=== PATIENT | male | born 1970 | race Caucasian/White ===

== ENCOUNTER 2022-10-28 09:20 | Inpatient (IN) | payer OTHER, SELFPAY ==
[2022-10-28] VITALS (26 sets, daily range): BP systolic 116–176; BP diastolic 70–93; PULSE 85–122; RESP 12–34; TEMP 36.1–38.7; O2SAT 84–96; BMI 33.9; BMI 34.9
--- NOTE | 2022-10-28 09:41 | EX.ED.VIS.UR ---
HPI HPI - URI History of Present Illness Chief Complaint: Shortness of Breath Detail of Chief Complaint: URI symptoms last 2 days. Informant: patient Onset/Context/Timing Onset: Days Context: Gradual Onset Timing: Continuous Current Severity: Mild Maximum Severity: Mild Associated Symptoms Associated Symptoms: Positive for Nasal Congestion, Headache, Myalgias, Shortness of Breath and Productive Cough; Negative for Nausea, Vomiting, Diarrhea, Chest Pain, Nonproductive cough or Hemoptysis Narrative Narrative: 52-year-old male no significant past medical history. Currently on no medications. Says he had URI symptoms for last 2 to 3 days. Coughing up yellow phlegm. No hemoptysis. No chest pain. He has had headache or shortness of breath body aches fevers and chills. He took a home COVID test today which was positive. Prior similar symptoms: Yes Recent Illness/Hospitalization: No ROS ROS ED ROS Narrative Cough. Shortness of breath. Fever and chills. Review of Systems ROS Unobtainable: Denies due to encephalopathy Constitutional Constitutional ED: Reports chills and fever(s) Eyes Eyes: Denies blurry vision Cardiovascular Cardiovascular: Denies chest pain Respiratory/Chest Respiratory/Chest: Reports cough and dyspnea Gastrointestinal Gastrointestinal: Denies abdominal pain, constipation, diarrhea, melena, nausea or vomiting Genitourinary Genitourinary ED: Denies dysuria Musculoskeletal Musculoskeletal: Reports myalgias; Denies arthralgias Integumentary Denies abscess Neurologic Neurologic: Reports headache(s) Psychiatric Psychiatric: Denies anxiety Endocrine Endocrinology: Denies cold intolerance Hematologic/Lymphatic Hematologic/Lymphatic: Denies easy bleeding or easy bruising Allergic/Immunologic Allergic/Immunologic ED: Denies mouth swelling or tongue swelling PFSH PFSH Medical History no medical history no medical history Home Medications NK 10/28/22 [History Last Taken Unknown] Allergy/AdvReac Type Severity Reaction Status Date / Time No Known Allergies Allergy Verified 10/28/22 09:25 Social History Smoking Status: Never smoker EXAM Physical Exam Narrative Exam Narrative: 52-year-old male vital signs stable except is hypoxic at 80% on room air. Temperature 96. He does not look septic or toxic. He does not feel well. Clinically mildly dehydrated. H EENT exam dry mucous membranes otherwise unremarkable. Neck nontender. No JVD noted. Lungs dry cough. No rales OR WHEEZING. HEART TACHYCARDIC RATE ABOUT 120 NO MURMUR. ABDOMEN SOFT NONTENDER. EXTREMITIES MOVES ALL 4. CALVES ARE NONTENDER WITHOUT EDEMA OR CORDS. NEUROLOGICALLY IS AWAKE AND ALERT WITH NO FOCAL MOTOR DEFICITS. Const Vital Signs: 10/28/22 09:22 10/28/22 09:24 10/28/22 09:39 Temperature 99.6 F H 99.6 F H Temperature Source Temporal Temporal Pulse Rate 122 H 122 H Respiratory Rate 24 H 24 H Respiratory Effort Short of Breath Respiratory Depth Shallow Respiratory Pattern Tachypnea Blood Pressure 176/93 H 176/93 H Blood Pressure Mean 120 120 Pulse Ox 88 88 Oxygen Delivery Method Room Air Room Air Oxygen Flow Rate (L/min) 10/28/22 09:45 10/28/22 10:15 10/28/22 10:24 Temperature 100.2 F H Temperature Source Temporal Pulse Rate 112 H Respiratory Rate 26 H Respiratory Effort Respiratory Depth Respiratory Pattern Blood Pressure 141/83 H Blood Pressure Mean 102 Pulse Ox 90 88 88 Oxygen Delivery Method Nasal Cannula Nasal Cannula Nasal Cannula Oxygen Flow Rate (L/min) 4 6 6 10/28/22 11:00 Temperature 101.2 F H Temperature Source Temporal Pulse Rate 112 H Respiratory Rate 34 H Respiratory Effort Respiratory Depth Respiratory Pattern Blood Pressure 156/81 H Blood Pressure Mean 106 Pulse Ox 92 Oxygen Delivery Method High Flow Oxygen Flow Rate (L/min) 10 Positive well nourished, well developed and obese; Negative for cachectic or contractures General Appearance ED: well developed and NAD; Negative for cachectic, contractures, cyanotic, diaphoretic or pallor Nutritional Appearance: obese; Negative for cachectic HEENT Reports moist mucous membranes; Denies dry mucous membranes normocephalic and atraumatic Face and Sinus: Negative for sinus tenderness Mouth ED: No dry mucous membranes Mouth: No dry mucous membranes Teeth and Gingiva: Negative for caries Throat: posterior oropharynx normal; Negative for tonsils abnormal Eyes PERRL and EOMs intact bilaterally General Eye ED: Negative for pale conjunctiva or scleral icterus Neck no lymphadenopathy, supple, no meningeal signs and no JVD General: Negative for anterior neck swelling or lymphadenopathy Resp normal respiratory effort and clear to auscultation bilaterally Effort and Inspection: Negative for retractions Auscultation: Negative for rales, rhonchi or wheezes Cardio S1 normal heart sound, S2 normal heart sound and no murmurs Rate: tachycardic; Negative for regular rate Rhythm: regular rhythm GI non-tender, non-distended and no masses Inspection: Negative for abdominal distention Auscultation: normoactive bowel sounds Palpation: soft; Negative for tender or guarding Back/Spine no CVA tenderness and normal ROM General Back: Negative for CVA tenderness Cervical Spine: Negative for cervical spine tenderness Thoracic Spine / Upper Back: Negative for thoracic spinal tenderness Lumbar Spine / Lower Back: Negative for lumbar spinal tenderness Sacrum: Negative for tenderness Extremity normal to inspection and full ROM General Extremety ED: Negative for cyanosis or tenderness General Extremity: Negative for cyanosis Neuro oriented x3 and CN's II-XII intact bilaterally Sensorium / Orientation: alert, oriented to person, oriented to place and oriented to time; Negative for orientation impaired, lethargic or stuporous Motor Exam: strength 5/5 throughout Psych mental status grossly normal Appearance: Negative for other Attitude: No agitated Mood & Affect: Negative for depressed, anxious or tearful Skin General Skin Exam: Negative for jaundice or pallor Lesions: no lesions Rashes: no rashes Trauma: Negative for abrasion or laceration MDM MDM MDM Narrative Medical decision making narrative: Healthy 52-year-old male with COVID and hypoxic. Screening labs will be obtained with a chest x-ray. Also obtain an EKG due to his tachycardia. He will be treated with IV fluids due to his clinical dehydration. Repeat exam at 11:34 AM patient is stable. He is tachycardic at 115. He is on high flow oxygen because on 2 L he remained hypoxic. I am would obtain a CTA of his chest to help delineate a pneumonia versus COVID pneumonitis versus possible pulmonary emboli. He had been given Toradol IV for his headache and Tylenol. He is currently drinking fluids. I will speak to the hospitalist about admission. Spoke to the hospitalist patient will be admitted to the progressive care unit. Awaiting CTA results. If he has what appears to be a bacterial pneumonia be started on antibiotics if this is COVID pneumonitis he will not. Obviously if he has any clots those will be addressed with anticoagulation. I have reviewed old medical records on this patient and discussed with both he and his 's treatment plan. CAT scan of his chest shows multilobar dense infiltrates consistent with multilobar pneumonia. He will be started on IV Zithromax and Rocephin. I will add blood cultures. His respiratory status has worsened and is currently on BiPAP. I have spoken to the fabric and textile factory worker Dr. Remigio Rios. I will change the patient's admission status due to his worsening condition and increasing oxygen requirement to the ICU. Lab Data Attestation: I reviewed the patient's lab results. Lab results narrative: Rapid COVID-positive consistent with his positive home test. Influenza negative here. CBC shows elevated white count 12.3. H&H of 15.3 and 46. Electrolytes show sodium 135. Gap of 8. Normal BUN of 14 creatinine 1.1. Glucose 219. Chest x-ray bilateral lower lobe infiltrates. Which could be from his COVID or a secondary pneumonia. Labs: Laboratory Results - last 24 hr 10/28/22 10/28/22 09:45 09:45 WBC 12.3 H RBC 4.91 Hgb 15.3 Hct 46.5 MCV 94.7 H MCH 31.2 MCHC 32.9 RDW Std Deviation 45.7 H RDW Coeff of Sakshi 13.1 Plt Count 170 MPV 10.1 Immature Gran % (Auto) 1.100 H Neut % (Auto) 89.8 H Lymph % (Auto) 6.7 L Baxter % (Auto) 2.0 Eos % (Auto) 0.4 Baso % (Auto) 0.0 Absolute Neuts (auto) 11.0 H Absolute Lymphs (auto) 0.82 L Nucleated RBC % 0 Sodium 135 L Potassium 3.4 L Chloride 98 Carbon Dioxide 29.0 Anion Gap 8 BUN 14 Creatinine 1.15 Estim Creat Clear Calc 84.35 Est GFR (MDRD) Af Amer 86 Est GFR (MDRD) Non-Af 71 BUN/Creatinine Ratio 12.2 Glucose 219 H Calcium 8.6 Radiography Diagnostic Testing: Clinical Impression(s) from Imaging Studies Chest X-Ray 10/28/22 10:05 IMPRESSION: Bibasilar pulmonary infiltrates worse at the left lung base. Follow-up is recommended. Electronically Signed: Jamarcus Hodge MD at 10:28 EST , Chest CTA 10/28/22 11:40 IMPRESSION: Dense consolidation at the lung bases worse in the right lower lobe with the scattered areas of focal infiltrates in the right upper lobe as well as in the lingular segment of the left upper lobe and right middle lobe. No evidence of pulmonary embolism. Electronically Signed: Jamarcus Hodge MD at 12:33 EST , Rhythm Strip Rhythm Strip: Sinus Tach Rate: 115 Ectopy: None EKG Initial EKG: Attestation: I personally reviewed and interpreted this EKG as follows: Interpretation: No Acute Injury Pattern and Sinus Tachycardia Comments: Sinus tachycardia rate of 116. No signs of ST elevation. Critical Care Time Critical Care Time: Yes Critical care time (excluding procedures): 30-74 minutes, Including time spent:, Discussing w/Consultants, Arranging Admission or Transfer, Performing Direct Patient Care at Bedside and - (35 min) Discharge Plan Dx/Rx/DC Orders Clinical Impression: COVID-19, Respiratory failure, Hypoxia, Pneumonia Disposition Disposition: Acute Care Hospital [facility]
--- NOTE | 2022-10-28 10:05 | RAD_ITS ---
STUDY: X-RAY CHEST REASON FOR EXAM: Male, 52 years old. Hypoxia and covid . Fever and chills. TECHNIQUE: Single AP portable view of the chest. COMPARISON: None. FINDINGS: EKG electrodes are seen. Bibasilar pulmonary infiltrates worse at the left lung base. Follow-up is recommended. There is no demonstrated pleural abnormality. Normal size heart. Normal mediastinum and ridge. Normal visualized pulmonary arteries. There is atherosclerotic tortuosity of the aortic arch and descending thoracic aorta. There are diffuse degenerative changes of the visualized thoracic spine. Normal visualized ribs, clavicles, and shoulders. There is no demonstrated abnormality of the visualized soft tissue structures of the upper abdomen. RAD/Chest 1 View (Portable) IMPRESSION: Bibasilar pulmonary infiltrates worse at the left lung base. Follow-up is recommended. Electronically Signed: Jamarcus Hodge MD at 10:28 EST ,
--- NOTE | 2022-10-28 10:05 | EKG12_ITS ---
Test Reason : SOB Blood Pressure : / mmHG Vent. Rate : 115 BPM Atrial Rate : 115 BPM P-R Int : 156 ms QRS Dur : 092 ms QT Int : 316 ms P-R-T Axes : 033 032 -22 degrees QTc Int : 437 ms Sinus tachycardia Incomplete right bundle branch block Nonspecific ST and T wave abnormality Abnormal ECG Confirmed by JENY CALIX, BIRDIE ([id number]), photographic editor CAN GARCIA ([id number]) on 11/01/2022 10:28:37 AM Referred By: Confirmed By:FLORES FERMIN MD
[2022-10-28] MEDS: 0.9% Normal Saline 1,000 ML 999 ML IV (10:12)
[2022-10-28 10:16] LABS: Absolute Lymphocyte Count 0.82 X10^3/uL (0.83-4.51); Eosinophil# 0.05 X10^3/uL; Eosinophils% 0.4 % (0-5); Hematocrit 46.5 % (40-54); Hemoglobin 15.3 g/dL (13.0-16.5); Lymphocyte # 0.82 X10^3/ul (0.83-4.51); Lymphocyte % 6.7 % (19-41); Mean Corp Hgb Conc 32.9 g/dL (32-36); Mean Corpuscular Hgb 31.2 pg (27.0-32.0); Mean Corpuscular Volume 94.7 fL (80-94); Mean Platelet Vol. 10.1 fl (6.2-12.0); Monocyte# 0.25 X10^3/uL; NRBC Flagged by Analyzer 0 % (0-5); Neutrophil # 11.03 X10^3/uL (2.7-7.7); Neutrophil % 89.8 % (47-70); POSITIVE MORPHOLOGY YES; Platelet Count 170 K/mm3 (150-450); RBC Distribution Width CV 13.1 % (11.6-14.6); RBC Distribution Width SD 45.7 fl (35.1-43.9); Red Blood Count 4.91 M/mm3 (4.6-6.2); White Blood Count 12.3 K/mm3 (4.4-11.0)
[2022-10-28 10:19] LABS: Differential Indicated SCAN CRITERIA MET
[2022-10-28 10:26] LABS: Anion Gap 8 (5-15); BUN 14 mg/dL (7-18); BUN/Creat Ratio 12.2 RATIO (10-20); Calcium,Total 8.6 mg/dL (8.5-10.1); Chloride 98 mmol/L (98-107); Creatinine, Serum 1.15 mg/dL (0.70-1.30); EST Glomerular Filtration Rate 71 mL/min (>60); Est Glom Filt Rate - Afr Amer 86 mL/min (>60); Estimated Creatinine Clearance 84.35 ml/min; Glucose 219 mg/dL (74-106); Potassium 3.4 mmol/L (3.5-5.1); Sodium Level 135 mmol/L (136-145)
--- NOTE | 2022-10-28 11:40 | CT_ITS ---
STUDY: CTA CHEST REASON FOR EXAM: Male, 52 years old. reps failure w/ covid and hypoxia RADIATION DOSAGE (If Supplied By Facility): CTDIvol = ( 22.17 ) mGy, DLP = ( 576.16 ) mGycm TECHNIQUE: The examination was performed with the intravenous administration of IV 100mL Isovue-370. Post-processing of the angiographic images was performed, with multiplanar reformation and 3D reconstruction. Individualized dose optimization techniques were used for this CT. COMPARISON: None. FINDINGS: Normal enhancement of the main pulmonary artery and right and left pulmonary arteries. Normal enhancement of the bilateral peripheral pulmonary arteries. There is no demonstrated pulmonary embolism. Normal thoracic aorta and visualized great vessels. There is no demonstrated aortic dissection. Normal heart and pericardium. There are visualized mediastinal lymph nodes, which are within normal size limits, and with normal morphology. Normal hilar regions. Normal visualized trachea and bronchi. The lungs are well expanded. Focal infiltrate in the anterior aspect of the right upper lobe. Patchy areas of increased markings in the right middle lobe. Dense consolidation in both lower lobes worse on the right side. Patchy infiltrate in the posterior aspect of the lingular segment of the left upper lobe. Normal pleura. Normal chest wall structures. There are degenerative changes of thoracic spine. Fatty infiltration of the liver. Small hiatal hernia. CT/CTA Chest W/WO Contrast IMPRESSION: Dense consolidation at the lung bases worse in the right lower lobe with the scattered areas of focal infiltrates in the right upper lobe as well as in the lingular segment of the left upper lobe and right middle lobe. No evidence of pulmonary embolism. Electronically Signed: Jamarcus Hodge MD at 12:33 EST ,
--- NOTE | 2022-10-28 11:53 | PCM.HP.STD ---
HPI - General General Date of Admission: 10/28/22 Date of Service: 10/29/22 Chief Complaint: SOB - 2 days HPI Narrative TAVON ROSARIO, is a 52 M who presents the above. Patient stated he has past medical history of hypertension, not on medications, history of vaccination against COVID-19 who comes in with progressive shortness of breath ongoing for couple days. Patient lives with his parents. He denies any sick contact but admits to fever and chills and cough. He has a cough that is not productive. He denies any chest pain or orthopnea or PND or dizziness. His vitals in the ED showed blood pressure 136/93, heart rate 83, respiratory 24, temperature 99.6 F, oxygen sat was 88% on 4 L of oxygen. This improved to 93% on BiPAP. His WBC count was 12.3, hemoglobin 15.3, platelet count 170. His sodium was 135, potassium 3.5 BUN 14, creatinine 1.5. Blood sugar was 219, lactic acid was 2.2. Initial chest x-ray showed bibasilar pulmonary infiltrates, worse on the left lung base. CT of the chest showed dense consolidation in the lung bases worse in the right lower lobe with scattered infiltrates in the right upper lobe. [facility] Medical History Hypertension Medical History no medical history Home Medications NK 10/28/22 [History Last Taken Unknown] Allergy/AdvReac Type Severity Reaction Status Date / Time No Known Allergies Allergy Verified 10/28/22 09:25 no significant family history no surgical history Social History (Updated 10/29/22 @ 00:[address] Jenny Johnston MD) household members: family Smoking Status: Never smoker alcohol intake: never substance use type: does not use ROS ROS Narrative Constitutional: Reports: Malaise, Weakness, Fatigue. Denies: Anorexia, Chills, Fever, Night Sweats, Weight Change Eyes: Denies: Blurred vision, Cataracts, Conjunctivae Inflammation, Pain, Redness, Vision Change HEENT: Denies: Difficulty Hearing, Difficulty Swallowing, Head Aches, Hearing Changes, Sinus Congestion, Sinus Drainage Cardiovascular: Denies: Chest Pain, Orthopnea, Palpitations Respiratory: See HPI Gastrointestinal: Denies: Abdominal Pain, Nausea, Vomiting Genitourinary: Denies: Dysuria Musculoskeletal: Denies: Joint Pain, Joint stiffness, Joint swelling, Joint Tenderness Skin: Denies: Rash, Wounds Neurological: Denies: Numbness, Tingling, Focal weakness Vital Signs Vital Signs Vital Signs: 10/28/22 09:22 10/28/22 09:24 10/28/22 09:39 Temperature 99.6 F H 99.6 F H Temperature Source Temporal Temporal Pulse Rate 122 H 122 H Respiratory Rate 24 H 24 H Respiratory Effort Short of Breath Respiratory Depth Shallow Respiratory Pattern Tachypnea Blood Pressure 176/93 H 176/93 H Blood Pressure Mean 120 120 Pulse Ox 88 88 Oxygen Delivery Method Room Air Room Air Oxygen Flow Rate (L/min) 10/28/22 09:45 10/28/22 10:15 10/28/22 10:24 Temperature 100.2 F H Temperature Source Temporal Pulse Rate 112 H Respiratory Rate 26 H Respiratory Effort Respiratory Depth Respiratory Pattern Blood Pressure 141/83 H Blood Pressure Mean 102 Pulse Ox 90 88 88 Oxygen Delivery Method Nasal Cannula Nasal Cannula Nasal Cannula Oxygen Flow Rate (L/min) 4 6 6 10/28/22 11:00 Temperature 101.2 F H Temperature Source Temporal Pulse Rate 112 H Respiratory Rate 34 H Respiratory Effort Respiratory Depth Respiratory Pattern Blood Pressure 156/81 H Blood Pressure Mean 106 Pulse Ox 92 Oxygen Delivery Method High Flow Oxygen Flow Rate (L/min) 10 Weight Weight: 113.398 kg Body Mass Index (BMI) 33.9 Physical Exam Narrative Physical exam: General: Alert, Oriented x3, Cooperative, obese, on 8 L of oxygen HEENT: Atraumatic Oral: Moist Mucosa Neck: Supple Lungs: Diminished to auscultation Cardiovascular: HS I+II, regular, no murmurs Abdomen: Bowel Sounds Present, Soft, Non Tender Extremities: No edema Skin: No rashes, No breakdown Neurological: Grossly intact Psych/Mental Status: Appropriate Results Lab / Micro Data Result Diagrams: 10/28/22 09:45 10/28/22 09:45 Labs: Laboratory Results - last 24 hr 10/28/22 09:45: WBC 12.3 H, RBC 4.91, Hgb 15.3, Hct 46.5, MCV 94.7 H, MCH 31.2, MCHC 32.9, RDW Std Deviation 45.7 H, RDW Coeff of Sakshi 13.1, Plt Count 170, MPV 10.1, Immature Gran % (Auto) 1.100 H, Neut % (Auto) 89.8 H, Lymph % (Auto) 6.7 L, [place] % (Auto) 2.0, Eos % (Auto) 0.4, Baso % (Auto) 0.0, Absolute Neuts (auto) 11.0 H, Absolute Lymphs (auto) 0.82 L, Nucleated RBC % 0 10/28/22 09:45: Sodium 135 L, Potassium 3.4 L, Chloride 98, Carbon Dioxide 29.0, Anion Gap 8, BUN 14, Creatinine 1.15, Estim Creat Clear Calc 84.35, Est GFR (MDRD) Af Amer 86, Est GFR (MDRD) Non-Af 71, BUN/Creatinine Ratio 12.2, Glucose 219 H, Calcium 8.6 Micro: Microbiology 10/28/22 09:55 Nasal Secretion SARS-CoV-2 & FLU Antigen (Rapid) - Final SARS-CoV-2 (COVID 19) Rhythm Strip Rhythm Strip: Sinus Tach Rate: 115 Ectopy: None Radiology Impression Chest X-Ray 10/28/22 10:05 IMPRESSION: Bibasilar pulmonary infiltrates worse at the left lung base. Follow-up is recommended. Electronically Signed: Jamarcus Hodge MD at 10:28 EST , Assessment & Plan Assessment/Plan (1) Respiratory failure: (2) COVID-19: PLAN: Plan 1. Acute hypoxic respiratory failure secondary to acute COVID-19 infection/community-acquired pneumonia. Patient has history of vaccination against COVID-19. Admitting chest x-ray and CTA of the chest shows community-acquired pneumonia; negative for acute PE Continue treatment for COVID-19 with dexamethasone and remdesivir Continue empiric treatment for community-acquired pneumonia with antibiotics Encourage use of incentive spirometer 2. Hypertension, blood pressures are controlled, not on medication, continue to monitor for now but 3. Hypokalemia, replaced, recheck in a.m. 4. DVT PPx- Lovenox SC Charges/Coding Visit Charges Inpatient E&M: 30723 Init Hosp L2
[2022-10-28] MEDS: Ketorolac 30 MG/ML Syringe IV (12:16)
[2022-10-28] MEDS: Acetaminophen 500 MG Tablet 1000 MG PO (12:16)
--- NOTE | 2022-10-28 12:52 | CPS ---
at 1237 placed pt on bipap. pt was on HFNC at 12L and sat was only in the mid to high 80. placed pt on bipap of 16/10 100%. sat came up to 95%. RN and doctor erasmo aware.
[2022-10-28] MEDS: Ceftriaxone 1 GM/50 ML BAG IV (13:13)
[2022-10-28 13:52] LABS: Lactic Acid 2.2 mmol/L (0.4-1.9)
[2022-10-28 16:34] LABS: AST(SGOT) 16 U/L (15-37); Alanine Aminotransfer ALT/SGPT 45 U/L (16-61); Albumin, Serum 3.4 g/dL (3.2-5.0); Alkaline Phosphatase 45 U/L (45-117); Bilirubin, Direct 0.23 mg/dL (0.00-0.30); Globulin 4.2 g/dL (2.2-4.2); Protein, Total 7.6 g/dL (6.4-8.2)
[2022-10-28] MEDS: Potassium Chloride Oral Tablet 20 MEQ 60 MEQ PO (17:00)
[2022-10-28] MEDS: dexAMETHasone 10 MG/ML Vial 6 MG IV (17:00)
[2022-10-28 17:04] LABS: Reflex Lactate? Y
[2022-10-28] MEDS: Ipratropium/Albuterol Sulfate 3 ML AMPUL.NEB INHALATION (19:38)
[2022-10-28 19:42] LABS: Lactic Acid 2.8 mmol/L (0.4-1.9)
[2022-10-29] VITALS (30 sets, daily range): BP systolic 108–152; BP diastolic 62–90; PULSE 74–105; RESP 12–34; TEMP 36.2–37.3; O2SAT 90–97
[2022-10-29 03:31] LABS: Absolute Lymphocyte Count 0.42 X10^3/uL (0.83-4.51); Absolute Neutrophil Count 10.1 X10^3/uL (2.0-7.7); Eosinophil# 0.05 X10^3/uL; Eosinophils% 0.5 % (0-5); Hematocrit 40.6 % (40-54); Hemoglobin 13.6 g/dL (13.0-16.5); Lymphocyte # 0.42 X10^3/ul (0.83-4.51); Lymphocyte % 3.9 % (19-41); Mean Corp Hgb Conc 33.5 g/dL (32-36); Mean Corpuscular Hgb 31.4 pg (27.0-32.0); Mean Corpuscular Volume 93.8 fL (80-94); Mean Platelet Vol. 9.9 fl (6.2-12.0); Monocyte# 0.18 X10^3/uL; Monocyte% 1.7 % (0-10); NRBC Flagged by Analyzer 0 % (0-5); Neutrophil # 10.14 X10^3/uL (2.7-7.7); Neutrophil % 93.6 % (47-70); POSITIVE DIFFERENTIAL YES; POSITIVE MORPHOLOGY YES; Platelet Count 176 K/mm3 (150-450); RBC Distribution Width CV 13.2 % (11.6-14.6); RBC Distribution Width SD 45.3 fl (35.1-43.9); Red Blood Count 4.33 M/mm3 (4.6-6.2); White Blood Count 10.8 K/mm3 (4.4-11.0)
[2022-10-29 03:32] LABS: Differential Indicated SCAN CRITERIA MET
[2022-10-29 03:47] LABS: ALB/GLOB Ratio 0.6 RATIO (0.9-2.4); AST(SGOT) 13 U/L (15-37); Alanine Aminotransfer ALT/SGPT 36 U/L (16-61); Albumin, Serum 2.7 g/dL (3.2-5.0); Alkaline Phosphatase 40 U/L (45-117); Anion Gap 10 (5-15); BUN 20 mg/dL (7-18); BUN/Creat Ratio 20.4 RATIO (10-20); Calcium,Total 8.5 mg/dL (8.5-10.1); Chloride 100 mmol/L (98-107); Creatinine, Serum 0.98 mg/dL (0.70-1.30); EST Glomerular Filtration Rate 86 mL/min (>60); Est Glom Filt Rate - Afr Amer 104 mL/min (>60); Estimated Creatinine Clearance 98.98 ml/min; Globulin 4.3 g/dL (2.2-4.2); Glucose 196 mg/dL (74-106); Potassium 3.8 mmol/L (3.5-5.1); Sodium Level 136 mmol/L (136-145)
[2022-10-29 05:23] LABS: Differential Comment SCANNED
[2022-10-29] MEDS: Ipratropium/Albuterol Sulfate 3 ML AMPUL.NEB INHALATION ×3 (06:50→20:06)
[2022-10-29 08:12] LABS: Hemoglobin A1c 7.2 % (3.8-5.6)
[2022-10-29] MEDS: 0.9% Saline Lock 10 ML Syringe IV (08:39)
[2022-10-29] MEDS: Enoxaparin 40 MG/0.4 ML Syringe SC (08:39)
[2022-10-29] MEDS: Acetaminophen 325 MG Tablet 650 MG PO (08:49)
--- NOTE | 2022-10-29 10:49 | EX.PCM.CONCC ---
Assessment & Plan Assessment/Plan (1) Respiratory failure: (2) COVID-19: PLAN: Plan RECOMMENDATIONS: 1. Continue to wean FiO2 as tolerated. BiPAP with sleep 2. Continue Remdesivir (11/01/2022) and Decadron (11/07/2022) 3. Add blood sugar checks 4. Agree with empiric antibiotics pending cultures 5. Obtain echocardiogram 6. Establish with PCP on discharge IMPRESSIONS: 1. Acute hypoxic respiratory failure secondary to COVID-19 with possible community-acquired pneumonia Patient was significant hypoxic respiratory failure on presentation. Patient is reportedly within 3 days of symptoms, so Remdesivir would be indicated, along with dexamethasone. Patient does have dense infiltrates bilaterally. Aspiration versus community-acquired pneumonia. Recommend sputum culture with empiric antibiotics pending cultures. Patient is currently on Airvo, but should use BiPAP with sleep for now. Outpatient work-up for sleep apnea would be indicated. 2. New diagnosis diabetes mellitus Patient with hemoglobin A1c of 7.1 and elevated glucose on BMP. Patient is currently on steroids secondary to problem #1. Will initiate sliding scale insulin. Patient may require initiation of metformin prior to discharge. However, in the setting of steroids, basal insulin may be ordered. 3. Hypertension/obesity/lack of primary care Complicates care, management, recovery and prognosis. We will monitor blood pressures closely. May initiate beta-nicola versus PRATIK inhibitor pending results. Patient needs to be established with PCP on discharge HPI Consult Data Date of Consult: 10/29/22 HPI Narrative Reason for Consultation: Hypoxic respiratory failure HPI Narrative: TAVON ROSARIO is a 52 M, with no reported past medical history, who presents to [facility] on 10/28/2022 secondary to 3 days of progressive shortness of breath, productive cough, body aches, fevers and chills. Patient reportedly had taken a home COVID test on the day of presentation was found to be positive. Patient did not reported any hemoptysis or chest pain. Patient reportedly was initially vaccinated, but not boosted and has not had the bivalent vaccine. Patient states he has no past medical history, but has not been seen by a physician in over 3 years. In the ER, patient was noted to have a temperature of 101.2 ?F, tachycardic at 122 beats per minute and tachypneic at 26 breaths/min. Patient was normotensive, but noted to be 88% on room air. Patient was placed on nasal cannula initially, but ultimately required BiPAP. Laboratory work-up showed a white blood cell count of 12.3, hemoglobin of 15.3 and platelets of 170. Chemistry showed an elevated bicarbonate of 29, creatinine of 1.15 and glucose of 219. Chest x-ray showed bibasilar infiltrates and a subsequent CTA of the chest showed dense consolidation of bilateral lower lobes with focal groundglass opacities, but no PE. Given concerns for possible deterioration requiring mechanical support, patient was admitted to the intensive care unit for further evaluation. Since being in the intensive care unit, patient's oxygen requirements have significantly improved. This morning, patient was able to be placed on Airvo and is maintaining saturations on 80% FiO2. Patient subjectively feels improved compared to previous. Patient continues to have a cough is productive of thick yellow sputum. Patient reports he has never had any respiratory illnesses that he is aware of. Patient has never been a smoker, seen a marketing intern or had PFTs. 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 Patient has not needed to be hospitalized previously. Patient is not reporting any current nausea or vomiting. No aspiration event has been reported. Review of systems otherwise negative from a constitutional, HEENT, respiratory, cardiovascular, GI, genitourinary, musculoskeletal, skin, neurologic, psychiatric and hematologic system unless stated above. [facility] Medical History Hypertension Medical History no medical history Home Medications NK 10/28/22 [History Last Taken Unknown] Allergy/AdvReac Type Severity Reaction Status Date / Time No Known Allergies Allergy Verified 10/28/22 09:25 Family History no significant family his Surgical History no surgical history Social History household members: family Smoking Status: Never smoker alcohol intake: never substance use type: does not use ROS ROS Narrative See HPI Physical Exam Const alert, oriented x3 and no apparent distress Constitutional Narrative: On Airvo. Obese. Appears older than stated age. General Appearance: cooperative and well developed HEENT normocephalic and head/scalp atraumatic Mouth: oral and palatal mucosa normal Eyes PERRL, EOMs intact bilaterally and no scleral icterus Neck full ROM and no lymphadenopathy Chest inspection of chest normal Resp Auscultation: diminished lung sounds; Negative for rales, rhonchi or wheezes Percussion: Negative for dullness Cardio regular rhythm, S1 normal heart sound, S2 normal heart sound, no murmurs, no rub and no gallops Rate: tachycardic GI normal to inspection, nondistended, normoactive bowel sounds no CVA tenderness Extremity no clubbing, cyanosis or edema Skin no rashes or lesions noted Neuro oriented x3, CN's II-XII intact bilaterally, moves all extremities and no focal motor deficits Psych cooperative Mood & Affect: flat affect Lab / Micro Data Attestation: I reviewed the patient's lab results. Result Diagrams: 10/29/22 03:25 10/29/22 03:25 Labs: Laboratory Results - last 24 hr 10/28/22 09:45: Total Bilirubin 0.70, Direct Bilirubin 0.23, AST 16, ALT 45, Alkaline Phosphatase 45, Total Protein 7.6, Albumin 3.4, Globulin 4.2 10/28/22 12:54: Lactic Acid 2.2 H* 10/28/22 19:05: Lactic Acid 2.8 H* 10/29/22 03:25: WBC 10.8, RBC 4.33 L, Hgb 13.6, Hct 40.6, MCV 93.8, MCH 31.4, MCHC 33.5, RDW Std Deviation 45.3 H, RDW Coeff of Sakshi 13.2, Plt Count 176, MPV 9.9, Immature Gran % (Auto) 0.300, Neut % (Auto) 93.6 H, Lymph % (Auto) 3.9 L, [place] % (Auto) 1.7, Eos % (Auto) 0.5, Baso % (Auto) 0.0, Absolute Neuts (auto) 10.1 H, Absolute Lymphs (auto) 0.42 L, Nucleated RBC % 0, Differential Comment SCANNED 10/29/22 03:25: Sodium 136, Potassium 3.8, Chloride 100, Carbon Dioxide 26.0, Anion Gap 10, BUN 20 H, Creatinine 0.98, Estim Creat Clear Calc 98.98, Est GFR (MDRD) Af Amer 104, Est GFR (MDRD) Non-Af 86, BUN/Creatinine Ratio 20.4 H, Glucose 196 H, Calcium 8.5, Total Bilirubin 0.60, AST 13 L, ALT 36, Alkaline Phosphatase 40 L, Total Protein 7.0, Albumin 2.7 L, Globulin 4.3 H, Albumin/Globulin Ratio 0.6 L 10/29/22 03:25: Hemoglobin A1c 7.2 H Micro: Microbiology 10/28/22 09:55 Nasal Secretion SARS-CoV-2 & FLU Antigen (Rapid) - Final SARS-CoV-2 (COVID 19) Rhythm Strip Rhythm Strip: Sinus Tach Rate: 115 Ectopy: None Radiology Impression Chest CTA 10/28/22 11:40 IMPRESSION: Dense consolidation at the lung bases worse in the right lower lobe with the scattered areas of focal infiltrates in the right upper lobe as well as in the lingular segment of the left upper lobe and right middle lobe. No evidence of pulmonary embolism. Electronically Signed: Jamarcus Hodge MD at 12:33 EST , Charges/Coding Visit Charges Inpatient E&M: 33666 Init Hosp L3
--- NOTE | 2022-10-29 10:57 | ECHOD_ITS ---
Reason For Study: DYSPNEA Procedure This was a 2D Doppler, Color Flow transthoracic echocardiogram. The study was technically difficult. Definity deferred due to no on axis apical window. Exam performed portable in ICU/CCU. The exam was abbreviated due to the COVID 19 protocol. Left Ventricle Normal LV size. The estimated ejection fraction is 65 %. Unable to assess diastolic dysfunction. No regional wall motion abnormalities noted. Right Ventricle Normal RV size. Normal systolic function. Atria Normal left atrium. Normal right atrium. No doppler evidence for ASD. Mitral Valve There is no mitral valve stenosis. No mitral valve insufficiency. Tricuspid Valve There is no tricuspid stenosis. No tricuspid valve insufficiency. Unable to estimate RV systolic pressure due to inadequate jet, pulmonary artery pressure probably normal. Aortic Valve Trisinus/trileaflet aortic valve. There is no aortic stenosis. No aortic valve insufficiency. Pulmonic Valve There is no pulmonic valvular stenosis. No pulmonic valve insufficiency. Great Vessels Normal aortic root. Pericardium/Pleural No pericardial effusion. MMode/2D Measurements & Calculations LVIDd: 5.0 cm IVSd: 1.3 cm Ao root diam: 3.7 cm LVIDs: 3.4 cm LVPWd: 0.99 cm FS: 32.7 % LA dimension(2D): 4.0 cm Time Measurements MV dec time: 0.22 sec Doppler Measurements & Calculations MV E max gilmar: 43.0 cm/sec Ao V2 max: 109.1 cm/sec MV A max gilmar: 39.5 cm/sec MV dec slope: 197.0 cm/sec2 Ao max P.8 mmHg MV E/A: 1.1 Ao V2 mean: 67.9 cm/sec Ao mean P.1 mmHg Ao V2 VTI: 17.7 cm AV (velocity ratio): 0.74 LV V1 max: 72.7 cm/sec LV V1 max P.1 mmHg LV V1 mean P.2 mmHg LV V1 mean: 50.6 cm/sec LV V1 VTI: 13.1 cm ECHO/Echo Complete Interpretation Summary The estimated ejection fraction is 65 %. Unable to assess diastolic dysfunction. Ordering Physician: Remigio Rios Referring Physician: ANASTACIA PCP Performed By: Daniela Garcia RCS
[2022-10-29] MEDS: dexAMETHasone 10 MG/ML Vial 6 MG IV (11:30)
[2022-10-29] MEDS: Insulin Lispro 100 UNIT/ML INSULN.PEN SC ×3 (11:34→20:35)
--- NOTE | 2022-10-29 11:36 | PN.HOSP_ITS ---
Subjective Subjective Follow-up on acute hypoxic respiratory failure/Acute COVID-19 infection: Patient seen and examined. His respiratory status has worsened, he is currently on Airvo. He denies any fever or chills. Objective Data Objective Data Vital Signs: Vital Signs Temp Pulse Resp BP Pulse Ox O2 Del Method O2 Flow Rate 97.8 F 90 26 H 108/62 97 Airvo 50 10/29/22 11:00 10/29/22 11:00 10/29/22 11:00 10/29/22 11:00 10/29/22 11:00 10/29/22 11:00 10/29/22 11:00 FiO2 90 10/29/22 11:00 Oxygen Flow Rate (L/min) 50 Oxygen Delivery Method Airvo Weight: 116.8 kg Body Mass Index (BMI) 34.9 Intake & Output: Intake and Output for Last 24 Hours 10/27/22 10/28/22 10/29/22 23:59 23:59 23:59 Intake Total 1305 / 1305 300 / 300 Output Total 300 / 300 200 / 200 Balance 1005 / 1005 100 / 100 Lab / Micro Data Result Diagrams: 10/29/22 03:25 10/29/22 03:25 Labs: Laboratory Results - last 24 hr 10/28/22 09:45: Total Bilirubin 0.70, Direct Bilirubin 0.23, AST 16, ALT 45, Alkaline Phosphatase 45, Total Protein 7.6, Albumin 3.4, Globulin 4.2 10/28/22 12:54: Lactic Acid 2.2 H* 10/28/22 19:05: Lactic Acid 2.8 H* 10/29/22 03:25: WBC 10.8, RBC 4.33 L, Hgb 13.6, Hct 40.6, MCV 93.8, MCH 31.4, MCHC 33.5, RDW Std Deviation 45.3 H, RDW Coeff of Sakshi 13.2, Plt Count 176, MPV 9.9, Immature Gran % (Auto) 0.300, Neut % (Auto) 93.6 H, Lymph % (Auto) 3.9 L, [place] % (Auto) 1.7, Eos % (Auto) 0.5, Baso % (Auto) 0.0, Absolute Neuts (auto) 10.1 H, Absolute Lymphs (auto) 0.42 L, Nucleated RBC % 0, Differential Comment SCANNED 10/29/22 03:25: Sodium 136, Potassium 3.8, Chloride 100, Carbon Dioxide 26.0, Anion Gap 10, BUN 20 H, Creatinine 0.98, Estim Creat Clear Calc 98.98, Est GFR (MDRD) Af Amer 104, Est GFR (MDRD) Non-Af 86, BUN/Creatinine Ratio 20.4 H, Glucose 196 H, Calcium 8.5, Total Bilirubin 0.60, AST 13 L, ALT 36, Alkaline Phosphatase 40 L, Total Protein 7.0, Albumin 2.7 L, Globulin 4.3 H, Albumin/Globulin Ratio 0.6 L 10/29/22 03:25: Hemoglobin A1c 7.2 H Micro: Microbiology 10/28/22 09:55 Nasal Secretion SARS-CoV-2 & FLU Antigen (Rapid) - Final SARS-CoV-2 (COVID 19) Radiography Diagnostic Testing: Radiology Impression Chest CTA 10/28/22 11:40 IMPRESSION: Dense consolidation at the lung bases worse in the right lower lobe with the scattered areas of focal infiltrates in the right upper lobe as well as in the lingular segment of the left upper lobe and right middle lobe. No evidence of pulmonary embolism. Electronically Signed: Jamarcus Hodge MD at 12:33 EST , Rhythm Strip Rhythm Strip: Sinus Tach Rate: 115 Ectopy: None Physical Exam Narrative Physical exam: General: Alert, Oriented x3, Cooperative, obese, on Airvo HEENT: Atraumatic Oral: Moist Mucosa Neck: Supple Lungs: Diminished to auscultation Cardiovascular: HS I+II, regular, no murmurs Abdomen: Bowel Sounds Present, Soft, Non Tender Extremities: No edema Skin: No rashes, No breakdown Neurological: Grossly intact Psych/Mental Status: Appropriate Assessment & Plan Assessment/Plan (1) Respiratory failure: (2) COVID-19: PLAN: Plan 1. Acute hypoxic respiratory failure secondary to acute COVID-19 infection/community-acquired pneumonia, worsening Currently on Airvo. Patient has history of vaccination against COVID-19. Admitting chest x-ray and CTA of the chest shows community-acquired pneumonia; negative for acute PE Continue treatment for COVID-19 with dexamethasone and remdesivir Continue empiric treatment for community-acquired pneumonia with antibiotics Encourage use of incentive spirometer 2. Hypertension, blood pressures are controlled, not on medication, continue to monitor for now but 3. Hypokalemia, replaced, recheck in a.m. 4. DVT PPx- Lovenox SC Charges/Coding Visit Charges Inpatient E&M: 76067 Subs Hosp L2
[2022-10-29 12:00] LABS: Bedside Glucose 222 mg/dL (74-106)
--- NOTE | 2022-10-29 18:46 | CASEMGMT ---
CHONG ELIAS DC Planning Assessment: Face to Face with patient attempted for initial transition planning/care coordination assessment but pt unavailable and requiring O2 via Airvo. Call placed to pt's mother Chu. CHONG ELIAS introduced self and role at [facility], pt's mother voiced understanding and agreed to participate in assessment. Care providers, pharmacy, and demographics verified. PCP: None, will provide a PCP list. Specialists: None Preferred [facility]acy: [facility] Insurance: [employer] Prescription Benefit: Yes Living Will/HPOA: None LNOK: Mother Chu Living Arrangements: Pt lives in the basement of his parent's home. Stairs are accessed from the garage to be able to access the remainder of the home. Pt has been independent with all ADLs and was working multimedia journalist. Transportation: Pt drives self, parents are retired and able to drive pt if needed DME/HHC/SNF: None Plan: Return to parent's home. Will monitor for potential home O2 or other needs as identified. Tomasa Segura RN CM
[2022-10-29 21:01] LABS: Bedside Glucose 252 mg/dL (74-106)
[2022-10-29 21:01] LABS: Bedside Glucose 206 mg/dL (74-106)
[2022-10-30] VITALS (32 sets, daily range): BP systolic 115–168; BP diastolic 74–99; PULSE 58–85; RESP 12–33; TEMP 36.4–37.3; O2SAT 93–97
[2022-10-30 04:25] LABS: Absolute Lymphocyte Count 0.81 X10^3/uL (0.83-4.51); Absolute Neutrophil Count 8.5 X10^3/uL (2.0-7.7); Basophil# 0.04 X10^3/uL; Basophil% 0.4 % (0-1); Eosinophil# 0.05 X10^3/uL; Eosinophils% 0.5 % (0-5); Hematocrit 38.7 % (40-54); Lymphocyte # 0.81 X10^3/ul (0.83-4.51); Mean Corp Hgb Conc 33.6 g/dL (32-36); Mean Corpuscular Hgb 31.5 pg (27.0-32.0); Mean Corpuscular Volume 93.7 fL (80-94); Mean Platelet Vol. 9.9 fl (6.2-12.0); Monocyte# 0.56 X10^3/uL; Monocyte% 5.5 % (0-10); NRBC Flagged by Analyzer 0 % (0-5); Neutrophil # 8.53 X10^3/uL (2.7-7.7); Neutrophil % 84.3 % (47-70); Platelet Count 217 K/mm3 (150-450); RBC Distribution Width CV 13.2 % (11.6-14.6); Red Blood Count 4.13 M/mm3 (4.6-6.2); White Blood Count 10.1 K/mm3 (4.4-11.0)
[2022-10-30 04:53] LABS: ALB/GLOB Ratio 0.6 RATIO (0.9-2.4); AST(SGOT) 27 U/L (15-37); Alanine Aminotransfer ALT/SGPT 41 U/L (16-61); Albumin, Serum 2.5 g/dL (3.2-5.0); Alkaline Phosphatase 38 U/L (45-117); Anion Gap 7 (5-15); BUN 27 mg/dL (7-18); BUN/Creat Ratio 34.7 RATIO (10-20); Calcium,Total 8.6 mg/dL (8.5-10.1); Chloride 100 mmol/L (98-107); Creatinine, Serum 0.78 mg/dL (0.70-1.30); EST Glomerular Filtration Rate 112 mL/min (>60); Est Glom Filt Rate - Afr Amer 135 mL/min (>60); Estimated Creatinine Clearance 124.36 ml/min; Globulin 4.5 g/dL (2.2-4.2); Glucose 211 mg/dL (74-106); Potassium 4.1 mmol/L (3.5-5.1); Sodium Level 134 mmol/L (136-145)
[2022-10-30] MEDS: Insulin Lispro 100 UNIT/ML INSULN.PEN SC ×4 (06:30→21:12)
[2022-10-30 06:55] LABS: Bedside Glucose 208 mg/dL (74-106)
[2022-10-30] MEDS: Ipratropium/Albuterol Sulfate 3 ML AMPUL.NEB INHALATION ×4 (07:43→20:10)
--- NOTE | 2022-10-30 08:46 | PN.CC_ITS ---
Assessment & Plan Assessment/Plan (1) Respiratory failure: (2) COVID-19: PLAN: Plan RECOMMENDATIONS: 1. Continue to wean FiO2 as tolerated. BiPAP with sleep 2. Continue Remdesivir (11/01/2022) and Decadron (11/07/2022) 3. Continue blood sugar checks 4. Agree with empiric antibiotics pending cultures 5. Gentle diuresis 6. Okay to leave the intensive care unit IMPRESSIONS: 1. Acute hypoxic respiratory failure secondary to COVID-19 with possible community-acquired pneumonia Patient was significant hypoxic respiratory failure on presentation. Patient is reportedly within 3 days of symptoms, so Remdesivir would be indicated, along with dexamethasone. Patient does have dense infiltrates bilaterally. Aspiration versus community-acquired pneumonia. Recommend sputum culture with empiric antibiotics pending cultures. Patient is currently on Airvo, but should use BiPAP with sleep for now. Outpatient work-up for sleep apnea would be indicated. We will attempt a gentle diuresis. Echocardiogram is not consistent with systolic CHF 2. New diagnosis diabetes mellitus Patient with hemoglobin A1c of 7.1 and elevated glucose on BMP. Patient is currently on steroids secondary to problem #1. Will initiate sliding scale insulin. Patient may require initiation of metformin prior to discharge. However, in the setting of steroids, basal insulin may be ordered. 3. Hypertension/obesity/lack of primary care Complicates care, management, recovery and prognosis. We will monitor blood pressures closely. Blood pressure appears to be appropriate. Patient needs to be established with PCP on discharge Subjective Subjective Patient did okay overnight. Patient was able to tolerate BiPAP with sleep. Patient is not reporting much coughing. Patient is denying any pain. Objective Data Objective Data Vital Signs: Vital Signs Temp Pulse Resp BP Pulse Ox O2 Del Method O2 Flow Rate 36.4 C L 70 26 H 127/92 H 95 Airvo 50 10/30/22 08:00 10/30/22 08:00 10/30/22 08:00 10/30/22 08:00 10/30/22 08:00 10/30/22 08:00 10/30/22 08:00 FiO2 60 10/30/22 08:00 Oxygen Flow Rate (L/min) 50 Oxygen Delivery Method Airvo Weight: 116.8 kg Body Mass Index (BMI) 34.9 Intake & Output: Intake and Output for Last 24 Hours 10/28/22 10/29/22 10/30/22 23:59 23:59 23:59 Intake Total 1305 / 1305 1305 / 1305 Output Total 300 / 300 200 / 425 625 / 625 Balance 1005 / 1005 1105 / 880 -625 / -625 Lab / Micro Data Attestation: I reviewed the patient's lab results. Result Diagrams: 10/30/22 04:15 10/30/22 04:15 Labs: Laboratory Results - last 24 hr 10/29/22 11:31: POC Glucose 222 H 10/29/22 16:39: POC Glucose 206 H 10/29/22 20:34: POC Glucose 252 H 10/30/22 04:15: WBC 10.1, RBC 4.13 L, Hgb 13.0, Hct 38.7 L, MCV 93.7, MCH 31.5, MCHC 33.6, RDW Std Deviation 45.0 H, RDW Coeff of Sakshi 13.2, Plt Count 217, MPV 9.9, Immature Gran % (Auto) 1.300 H, Neut % (Auto) 84.3 H, Lymph % (Auto) 8.0 L, [place] % (Auto) 5.5, Eos % (Auto) 0.5, Baso % (Auto) 0.4, Absolute Neuts (auto) 8.5 H, Absolute Lymphs (auto) 0.81 L, Nucleated RBC % 0 10/30/22 04:15: Sodium 134 L, Potassium 4.1, Chloride 100, Carbon Dioxide 27.0, Anion Gap 7, BUN 27 H, Creatinine 0.78, Estim Creat Clear Calc 124.36, Est GFR (MDRD) Af Amer 135, Est GFR (MDRD) Non-Af 112, BUN/Creatinine Ratio 34.7 H, Glucose 211 H, Calcium 8.6, Total Bilirubin 0.30, AST 27, ALT 41, Alkaline Phosphatase 38 L, Total Protein 7.0, Albumin 2.5 L, Globulin 4.5 H, Albumin/Globulin Ratio 0.6 L 10/30/22 06:28: POC Glucose 208 H Micro: Microbiology 10/28/22 13:00 Blood Culture (Wb) - Left Hand Blood Culture - Preliminary No growth in 48 hours. 10/28/22 12:54 Blood Culture (Wb) - Anticubital Right Blood Culture - Preliminary No growth in 48 hours. 10/28/22 09:55 Nasal Secretion SARS-CoV-2 & FLU Antigen (Rapid) - Final SARS-CoV-2 (COVID 19) Radiography Diagnostic Testing: Radiology Impression Echocardiogram 10/29/22 10:57 Interpretation Summary The estimated ejection fraction is 65 %. Unable to assess diastolic dysfunction. Ordering Physician: Remigio Rios Referring Physician: ANASTACIA PCP Performed By: Daniela Garcia RCS Rhythm Strip Rhythm Strip: Sinus Rhythm Rate: 66 Ectopy: None Physical Exam Const alert, oriented x3 and no apparent distress Constitutional Narrative: On Airvo. Obese. Appears older than stated age. General Appearance: cooperative and well developed HEENT normocephalic and head/scalp atraumatic Eyes PERRL, EOMs intact bilaterally and no scleral icterus Neck full ROM and no lymphadenopathy Chest inspection of chest normal Resp Auscultation: diminished lung sounds; Negative for rales, rhonchi or wheezes Percussion: Negative for dullness Cardio regular rate, regular rhythm, S1 normal heart sound, S2 normal heart sound, no murmurs, no rub and no gallops GI normal to inspection, nondistended, normoactive bowel sounds no CVA tenderness Extremity no clubbing, cyanosis or edema Skin no rashes or lesions noted Neuro oriented x3, CN's II-XII intact bilaterally, moves all extremities and no focal motor deficits Psych cooperative Mood & Affect: flat affect Charges/Coding Visit Charges Inpatient E&M: 18304 Subs Hosp L3
[2022-10-30] MEDS: dexAMETHasone 10 MG/ML Vial 6 MG IV (10:12)
[2022-10-30] MEDS: Furosemide 40 MG Tablet 20 MG PO (10:13)
[2022-10-30] MEDS: Enoxaparin 40 MG/0.4 ML Syringe SC (10:13)
[2022-10-30] MEDS: 0.9% Saline Lock 10 ML Syringe IV (10:14)
[2022-10-30] MEDS: FLU VACC QS2022-23(6MOS UP)/PF 60 MCG/0.5 ML SYRINGE IM (10:20)
[2022-10-30 12:51] LABS: Bedside Glucose 275 mg/dL (74-106)
--- NOTE | 2022-10-30 14:26 | PN.HOSP_ITS ---
Subjective Subjective Follow-up on acute hypoxic respiratory failure/Acute COVID-19 infection: Patient seen and examined.? Patient's parents were in the room. He denied any new complaint. His oxygen sat was has improved to 8 L of oxygen. Objective Data Objective Data Vital Signs: Vital Signs Temp Pulse Resp BP Pulse Ox O2 Del Method O2 Flow Rate 97.9 F 82 25 H 127/99 H 95 Nasal Cannula 8 10/30/22 12:00 10/30/22 14:00 10/30/22 14:00 10/30/22 14:00 10/30/22 14:08 10/30/22 14:08 10/30/22 14:08 FiO2 60 10/30/22 08:00 Oxygen Flow Rate (L/min) 8 Oxygen Delivery Method Nasal Cannula Weight: 116.8 kg Body Mass Index (BMI) 34.9 Intake & Output: Intake and Output for Last 24 Hours 10/28/22 10/29/22 10/30/22 23:59 23:59 23:59 Intake Total 1305 / 1305 1305 / 1305 805 / 805 Output Total 300 / 300 200 / 425 1150 / 1150 Balance 1005 / 1005 1105 / 880 -345 / -345 Lab / Micro Data Result Diagrams: 10/30/22 04:15 10/30/22 04:15 Labs: Laboratory Results - last 24 hr 10/29/22 16:39: POC Glucose 206 H 10/29/22 20:34: POC Glucose 252 H 10/30/22 04:15: WBC 10.1, RBC 4.13 L, Hgb 13.0, Hct 38.7 L, MCV 93.7, MCH 31.5, MCHC 33.6, RDW Std Deviation 45.0 H, RDW Coeff of Sakshi 13.2, Plt Count 217, MPV 9.9, Immature Gran % (Auto) 1.300 H, Neut % (Auto) 84.3 H, Lymph % (Auto) 8.0 L, [place] % (Auto) 5.5, Eos % (Auto) 0.5, Baso % (Auto) 0.4, Absolute Neuts (auto) 8.5 H, Absolute Lymphs (auto) 0.81 L, Nucleated RBC % 0 10/30/22 04:15: Sodium 134 L, Potassium 4.1, Chloride 100, Carbon Dioxide 27.0, Anion Gap 7, BUN 27 H, Creatinine 0.78, Estim Creat Clear Calc 124.36, Est GFR (MDRD) Af Amer 135, Est GFR (MDRD) Non-Af 112, BUN/Creatinine Ratio 34.7 H, Glucose 211 H, Calcium 8.6, Total Bilirubin 0.30, AST 27, ALT 41, Alkaline Phosphatase 38 L, Total Protein 7.0, Albumin 2.5 L, Globulin 4.5 H, Albumin/Globulin Ratio 0.6 L 10/30/22 06:28: POC Glucose 208 H 10/30/22 12:26: POC Glucose 275 H Micro: Microbiology 10/28/22 13:00 Blood Culture (Wb) - Left Hand Blood Culture - Preliminary No growth in 48 hours. 10/28/22 12:54 Blood Culture (Wb) - Anticubital Right Blood Culture - Preliminary No growth in 48 hours. 10/28/22 09:55 Nasal Secretion SARS-CoV-2 & FLU Antigen (Rapid) - Final SARS-CoV-2 (COVID 19) Radiography Diagnostic Testing: Radiology Impression Echocardiogram 10/29/22 10:57 Interpretation Summary The estimated ejection fraction is 65 %. Unable to assess diastolic dysfunction. Ordering Physician: Remigio Rios Referring Physician: ANASTACIA PCP Performed By: Daniela Garcia RCS Rhythm Strip Rhythm Strip: Sinus Rhythm Rate: 66 Ectopy: None Physical Exam Narrative Physical exam: General: Alert, Oriented x3, Cooperative, obese, on Airvo HEENT: Atraumatic Oral: Moist Mucosa Neck: Supple Lungs: Diminished to auscultation Cardiovascular: HS I+II, regular, no murmurs Abdomen: Bowel Sounds Present, Soft, Non Tender Extremities: No edema Skin: No rashes, No breakdown Neurological: Grossly intact Psych/Mental Status: Appropriate Assessment & Plan Assessment/Plan (1) Respiratory failure: (2) COVID-19: PLAN: Plan 1. Acute hypoxic respiratory failure secondary to acute COVID-19 infection/community-acquired pneumonia, Appears to be improving today, currently on 8 L of oxygen Patient has history of vaccination against COVID-19. Admitting chest x-ray and CTA of the chest shows community-acquired pneumonia; negative for acute PE Continue treatment for COVID-19 with dexamethasone and remdesivir Continue empiric treatment for community-acquired pneumonia with antibiotics Encourage use of incentive spirometer 2. Hypertension, blood pressures are controlled, not on medication, continue to monitor for now 3. Type II DM, HbA1c 7.2, blood sugar elevated in the 200s, this is likely secondary to steroids We will start on Lantus 5 units QHS, continue blood glucose checks and insulin sliding scale 4. Hypokalemia, replaced 5. DVT PPx- Lovenox SC Charges/Coding Visit Charges Inpatient E&M: 84607 Subs Hosp L2
[2022-10-30 16:41] LABS: Bedside Glucose 258 mg/dL (74-106)
[2022-10-30] MEDS: Insulin Glargine-YFGN 100 UNIT/ML Pen SC (21:11)
[2022-10-30 21:40] LABS: Bedside Glucose 213 mg/dL (74-106)
[2022-10-31] VITALS (16 sets, daily range): BP systolic 124–151; BP diastolic 76–87; PULSE 51–74; RESP 12–32; TEMP 36.2–37.2; O2SAT 90–96
[2022-10-31 04:31] LABS: Hematocrit 41.2 % (40-54); Hemoglobin 13.9 g/dL (13.0-16.5); Mean Corp Hgb Conc 33.7 g/dL (32-36); Mean Corpuscular Hgb 31.2 pg (27.0-32.0); Mean Corpuscular Volume 92.6 fL (80-94); Mean Platelet Vol. 9.4 fl (6.2-12.0); POSITIVE COUNT YES; POSITIVE MORPHOLOGY YES; Platelet Count 260 K/mm3 (150-450); RBC Distribution Width CV 12.8 % (11.6-14.6); RBC Distribution Width SD 43.9 fl (35.1-43.9); Red Blood Count 4.45 M/mm3 (4.6-6.2); White Blood Count 13.7 K/mm3 (4.4-11.0)
[2022-10-31 04:39] LABS: Differential Indicated MANUAL DIFF
[2022-10-31 04:47] LABS: ALB/GLOB Ratio 0.6 RATIO (0.9-2.4); AST(SGOT) 20 U/L (15-37); Alanine Aminotransfer ALT/SGPT 42 U/L (16-61); Albumin, Serum 2.6 g/dL (3.2-5.0); Alkaline Phosphatase 41 U/L (45-117); Anion Gap 9 (5-15); BUN 28 mg/dL (7-18); BUN/Creat Ratio 34.6 RATIO (10-20); Calcium,Total 8.9 mg/dL (8.5-10.1); Chloride 100 mmol/L (98-107); Creatinine, Serum 0.81 mg/dL (0.70-1.30); EST Glomerular Filtration Rate 107 mL/min (>60); Est Glom Filt Rate - Afr Amer 130 mL/min (>60); Estimated Creatinine Clearance 119.75 ml/min; Globulin 4.7 g/dL (2.2-4.2); Glucose 232 mg/dL (74-106); Potassium 4.1 mmol/L (3.5-5.1); Protein, Total 7.3 g/dL (6.4-8.2); Sodium Level 134 mmol/L (136-145)
[2022-10-31 06:54] LABS: Neutrophil-Segmented 66 % (47-70); Total Cells Counted 100 (MANUAL DIFF)
[2022-10-31 06:55] LABS: Lymphocyte 13 % (19-41); Metamyelocyte 2 % (0-1); Monocyte 9 % (0-10); Myelocyte 3 % (0-0); Neutrophil-Band 7 % (0-5); Platelet Estimate ADEQUATE (ADEQ)
[2022-10-31 06:57] LABS: Absolute Lymphocyte Count 1.77 X10^3/uL (0.83-4.51); Lymphocyte # 1.77 X10^3/ul (0.83-4.51); Neutrophil # 9.96 X10^3/uL (2.7-7.7); Red Cell Morphology NORM C+C NORMAL (NORM C&C)
[2022-10-31] MEDS: Ipratropium/Albuterol Sulfate 3 ML AMPUL.NEB INHALATION ×4 (07:17→20:13)
[2022-10-31] MEDS: Insulin Lispro 100 UNIT/ML INSULN.PEN SC ×4 (08:21→22:25)
--- NOTE | 2022-10-31 08:26 | PN.CC_ITS ---
Assessment & Plan Assessment/Plan (1) Respiratory failure: (2) COVID-19: PLAN: Plan RECOMMENDATIONS: 1. Continue to wean FiO2 as tolerated. BiPAP with sleep 2. Continue Remdesivir (11/01/2022) and Decadron (11/07/2022) 3. Continue blood sugar checks 4. Discontinue antibiotics given negative cultures 5. Gentle diuresis 6. Okay to transfer to [facility] from my perspective IMPRESSIONS: 1. Acute hypoxic respiratory failure secondary to COVID-19 with possible community-acquired pneumonia Patient was significant hypoxic respiratory failure on presentation. Patient is reportedly within 3 days of symptoms, so Remdesivir would be indicated, along with dexamethasone. Patient does have dense infiltrates bilaterally. Aspiration versus community-acquired pneumonia. Recommend sputum culture with empiric antibiotics pending cultures. Patient is currently on nasal cannula, but should use BiPAP with sleep for now. Outpatient work-up for sleep apnea would be indicated. We will attempt a gentle diuresis. Echocardi ogram is not consistent with systolic CHF, but is responding to diuretics. We will continue. 2. New diagnosis diabetes mellitus Patient with hemoglobin A1c of 7.1 and elevated glucose on BMP. Patient is currently on steroids secondary to problem #1. Will initiate sliding scale insulin. Patient may require initiation of metformin prior to discharge. However, in the setting of steroids, basal insulin may be ordered. 3. Hypertension/obesity/lack of primary care Complicates care, management, recovery and prognosis. We will monitor blood pressures closely. Blood pressure appears to be appropriate. Patient needs to be established with PCP on discharge Subjective Subjective Patient did well overnight. No acute issues were reported. Patient subjectiv julian feels slightly improved compared to yesterday. Patient has been able to tolerate nasal cannula overnight. Objective Data Objective Data Vital Signs: Vital Signs Temp Pulse Resp BP Pulse Ox O2 Del Method O2 Flow Rate 36.2 C L 58 L 32 H 134/82 H 90 Nasal Cannula 7 10/31/22 08:00 10/31/22 08:00 10/31/22 08:00 10/31/22 08:00 10/31/22 08:00 10/31/22 08:00 10/31/22 08:00 FiO2 45 10/31/22 00:00 Oxygen Flow Rate (L/min) 7 Oxygen Delivery Method Nasal Cannula Weight: 116.5 kg Body Mass Index (BMI) 34.9 Intake & Output: Intake and Output for Last 24 Hours 10/29/22 10/30/22 10/31/22 23:59 23:59 23:59 Intake Total 1305 / 1305 2405 / 2405 260 / 260 Output Total 200 / 425 2600 / 2600 301 / 301 Balance 1105 / 880 -195 / -195 -41 / -41 Lab / Micro Data Attestation: I reviewed the patient's lab results. Result Diagrams: 10/31/22 04:20 10/31/22 04:20 Labs: Laboratory Results - last 24 hr 10/30/22 12:26: POC Glucose 275 H 10/30/22 16:20: POC Glucose 258 H 10/30/22 21:10: POC Glucose 213 H 10/31/22 04:20: WBC 13.7 H, RBC 4.45 L, Hgb 13.9, Hct 41.2, MCV 92.6, MCH 31.2, MCHC 33.7, RDW Std Deviation 43.9, RDW Coeff of Sakshi 12.8, Plt Count 260, MPV 9.4, Neut % (Auto) Not Reportable, Absolute Neuts (auto) 10.0 H, Absolute Lymphs (auto) 1.77, Total Counted 100, Neutrophils % (Manual) 66, Band Neutrophils % 7 H, Lymphocytes % (Manual) 13 L, Monocytes % (Manual) 9, Metamyelocytes % 2 H, Myelocytes % 3 H, Diff Path Review February, Platelet Estimate ADEQUATE, RBC Morphology NORM C+C 10/31/22 04:20: Sodium 134 L, Potassium 4.1, Chloride 100, Carbon Dioxide 25.0, Anion Gap 9, BUN 28 H, Creatinine 0.81, Estim Creat Clear Calc 119.75, Est GFR (MDRD) Af Amer 130, Est GFR (MDRD) Non-Af 107, BUN/Creatinine Ratio 34.6 H, Gl ucose 232 H, Calcium 8.9, Total Bilirubin 0.30, AST 20, ALT 42, Alkaline Phos phatase 41 L, Total Protein 7.3, Albumin 2.6 L, Globulin 4.7 H, Albumin/Globulin Ratio 0.6 L Micro: Microbiology 10/28/22 13:00 Blood Culture (Wb) - Left Hand Blood Culture - Preliminary No growth in 48 hours. 10/28/22 12:54 Blood Culture (Wb) - Anticubital Right Blood Culture - Preliminary No growth in 48 hours. 10/28/22 09:55 Nasal Secretion SARS-CoV-2 & FLU Antigen (Rapid) - Final SARS-CoV-2 (COVID 19) Rhythm Strip Rhythm Strip: Sinus Rhythm Rate: 56 Ectopy: None Physical Exam Const alert, oriented x3 and no apparent distress Constitutional Narrative: On nasal cannula. Obese. Appears older than stated age. General Appearance: cooperative and well developed HEENT normocephalic and head/scalp atraumatic Eyes PERRL, EOMs intact bilaterally and no scleral icterus Neck full ROM and no lymphadenopathy Chest inspection of chest normal Resp Auscultation: diminished lung sounds; Negative for rales, rhonchi or wheezes Percussion: Negative for dullness Cardio regular rate, regular rhythm, S1 normal heart sound, S2 normal heart sound, no murmurs, no rub and no gallops GI normal to inspection, nondistended, normoactive bowel sounds no CVA tenderness Extremity no clubbing, cyanosis or edema Skin no rashes or lesions noted Neuro oriented x3, CN's II-XII intact bilaterally, moves all extremities and no focal motor deficits Psych cooperative Mood & Affect: flat affect Charges/Coding Visit Charges Inpatient E&M: 50018 Subs Hosp L2
[2022-10-31 08:45] LABS: Bedside Glucose 222 mg/dL (74-106)
[2022-10-31] MEDS: Furosemide 40 MG Tablet PO (10:30)
[2022-10-31] MEDS: 0.9% Saline Lock 10 ML Syringe IV ×2 (10:30→22:26)
[2022-10-31] MEDS: dexAMETHasone 10 MG/ML Vial 6 MG IV (10:30)
[2022-10-31] MEDS: Enoxaparin 40 MG/0.4 ML Syringe SC (10:30)
--- NOTE | 2022-10-31 13:05 | PCM.PN.HOSP ---
Subjective Subjective Follow-up on acute hypoxic respiratory failure/Acute COVID-19 infection: Patient seen and examined.? He denied any new complaint.? His oxygen sat was has improved to7 L of oxygen. Objective Data Objective Data Vital Signs: Vital Signs Temp Pulse Resp BP Pulse Ox O2 Del Method O2 Flow Rate 97.8 F 55 L 18 136/78 H 96 Nasal Cannula 7 10/31/22 10:30 10/31/22 11:48 10/31/22 11:48 10/31/22 10:30 10/31/22 10:30 10/31/22 10:30 10/31/22 10:30 FiO2 45 10/31/22 00:00 Oxygen Flow Rate (L/min) 7 Oxygen Delivery Method Nasal Cannula Weight: 116.5 kg Body Mass Index (BMI) 34.9 Intake & Output: Intake and Output for Last 24 Hours 10/29/22 10/30/22 10/31/22 23:59 23:59 23:59 Intake Total 1305 / 1305 2405 / 2405 940 / 940 Output Total 200 / 425 2600 / 2600 801 / 801 Balance 1105 / 880 -195 / -195 139 / 139 Lab / Micro Data Result Diagrams: 10/31/22 04:20 10/31/22 04:20 Labs: Laboratory Results - last 24 hr 10/30/22 16:20: POC Glucose 258 H 10/30/22 21:10: POC Glucose 213 H 10/31/22 04:20: WBC 13.7 H, RBC 4.45 L, Hgb 13.9, Hct 41.2, MCV 92.6, MCH 31.2, MCHC 33.7, RDW Std Deviation 43.9, RDW Coeff of Sakshi 12.8, Plt Count 260, MPV 9.4, Neut % (Auto) Not Reportable, Absolute Neuts (auto) 10.0 H, Absolute Lymphs (auto) 1.77, Total Counted 100, Neutrophils % (Manual) 66, Band Neutrophils % 7 H, Lymphocytes % (Manual) 13 L, Monocytes % (Manual) 9, Metamyelocytes % 2 H, Myelocytes % 3 H, Diff Path Review May , Platelet Estimate ADEQUATE, RBC Morphology NORM C+C 10/31/22 04:20: Sodium 134 L, Potassium 4.1, Chloride 100, Carbon Dioxide 25.0, Anion Gap 9, BUN 28 H, Creatinine 0.81, Estim Creat Clear Calc 119.75, Est GFR (MDRD) Af Amer 130, Est GFR (MDRD) Non-Af 107, BUN/Creatinine Ratio 34.6 H, Glucose 232 H, Calcium 8.9, Total Bilirubin 0.30, AST 20, ALT 42, Alkaline Phosphatase 41 L, Total Protein 7.3, Albumin 2.6 L, Globulin 4.7 H, Albumin/Globulin Ratio 0.6 L 10/31/22 08:17: POC Glucose 222 H Micro: Microbiology 10/28/22 13:00 Blood Culture (Wb) - Left Hand Blood Culture - Preliminary No growth in 48 hours. 10/28/22 12:54 Blood Culture (Wb) - Anticubital Right Blood Culture - Preliminary No growth in 48 hours. 10/28/22 09:55 Nasal Secretion SARS-CoV-2 & FLU Antigen (Rapid) - Final SARS-CoV-2 (COVID 19) Rhythm Strip Rhythm Strip: Sinus Rhythm Rate: 56 Ectopy: None Physical Exam Narrative Physical exam: General: Alert, Oriented x3, Cooperative, obese, on 7 L of oxygen HEENT: Atraumatic Oral: Moist Mucosa Neck: Supple Lungs: Diminished to auscultation, more diminished on the left lower lung zone Cardiovascular: HS I+II, regular, no murmurs Abdomen: Bowel Sounds Present, Soft, Non Tender Extremities: No edema Skin: No rashes, No breakdown Neurological: Grossly intact Psych/Mental Status: Appropriate Assessment & Plan Assessment/Plan (1) Respiratory failure: (2) COVID-19: PLAN: Plan 1. Acute hypoxic respiratory failure secondary to acute COVID-19 infection/community-acquired pneumonia, Improving, currently on 7 L of oxygen Patient has history of vaccination against COVID-19. Admitting chest x-ray and CTA of the chest shows community-acquired pneumonia; negative for acute PE Continue treatment for COVID-19 with dexamethasone and remdesivir Blood cultures are negative; off antibiotics Encourage use of incentive spirometer 2. Hypertension, blood pressures are controlled, not on medication, continue to monitor for now 3. Type II DM, HbA1c 7.2, blood sugar elevated in the 200s, this is likely secondary to steroids Increase Lantus to 5 units twice daily whilst on the steroids, Continue blood glucose checks and insulin sliding scale 4. Hypokalemia, resolved 5. DVT PPx- Lovenox SC Charges/Coding Visit Charges Inpatient E&M: 74131 Subs Hosp L2
[2022-10-31 13:40] LABS: Bedside Glucose 272 mg/dL (74-106)
[2022-10-31 17:31] LABS: Bedside Glucose 321 mg/dL (74-106)
[2022-10-31] MEDS: Insulin Glargine-YFGN 100 UNIT/ML Pen SC (22:25)
[2022-10-31 22:55] LABS: Bedside Glucose 279 mg/dL (74-106)
[2022-11-01] VITALS (10 sets, daily range): BP systolic 122–145; BP diastolic 79–109; PULSE 58–69; RESP 16–21; TEMP 36.4–36.6; O2SAT 88–99
[2022-11-01 04:32] LABS: Hematocrit 47.2 % (40-54); Hemoglobin 15.4 g/dL (13.0-16.5); Mean Corp Hgb Conc 32.6 g/dL (32-36); Mean Corpuscular Hgb 30.9 pg (27.0-32.0); Mean Corpuscular Volume 94.8 fL (80-94); Mean Platelet Vol. 9.3 fl (6.2-12.0); POSITIVE COUNT YES; POSITIVE DIFFERENTIAL YES; POSITIVE MORPHOLOGY YES; Platelet Count 291 K/mm3 (150-450); RBC Distribution Width CV 13.1 % (11.6-14.6); RBC Distribution Width SD 45.7 fl (35.1-43.9); Red Blood Count 4.98 M/mm3 (4.6-6.2); White Blood Count 16.6 K/mm3 (4.4-11.0)
[2022-11-01 04:53] LABS: ALB/GLOB Ratio 0.6 RATIO (0.9-2.4); AST(SGOT) 33 U/L (15-37); Alanine Aminotransfer ALT/SGPT 55 U/L (16-61); Albumin, Serum 2.9 g/dL (3.2-5.0); Alkaline Phosphatase 48 U/L (45-117); Anion Gap 9 (5-15); BUN 30 mg/dL (7-18); BUN/Creat Ratio 32.4 RATIO (10-20); Calcium,Total 9.2 mg/dL (8.5-10.1); Chloride 101 mmol/L (98-107); Creatinine, Serum 0.93 mg/dL (0.70-1.30); EST Glomerular Filtration Rate 92 mL/min (>60); Est Glom Filt Rate - Afr Amer 111 mL/min (>60); Globulin 5.2 g/dL (2.2-4.2); Glucose 244 mg/dL (74-106); Potassium 4.2 mmol/L (3.5-5.1); Protein, Total 8.1 g/dL (6.4-8.2); Sodium Level 135 mmol/L (136-145)
[2022-11-01 04:54] LABS: Lymphocyte 10 % (19-41); Metamyelocyte 8 % (0-1); Monocyte 9 % (0-10); Neutrophil-Band 3 % (0-5); Neutrophil-Segmented 70 % (47-70); Total Cells Counted 100 (MANUAL DIFF)
[2022-11-01 04:56] LABS: Differential Indicated MANUAL DIFF
[2022-11-01 04:57] LABS: Absolute Lymphocyte Count 1.66 X10^3/uL (0.83-4.51); Absolute Neutrophil Count 13.4 X10^3/uL (2.0-7.7); Lymphocyte # 1.66 X10^3/ul (0.83-4.51); Neutrophil # 13.41 X10^3/uL (2.7-7.7)
[2022-11-01 04:58] LABS: Platelet Estimate ADEQUATE (ADEQ); Red Cell Morphology NORM C+C NORMAL (NORM C&C)
[2022-11-01] MEDS: Ipratropium/Albuterol Sulfate 3 ML AMPUL.NEB INHALATION ×3 (06:58→20:18)
--- NOTE | 2022-11-01 07:36 | PN.HOSP_ITS ---
Subjective Subjective Patient is a 52-year-old gentleman admitted with progressive shortness of breath. An assessment of acute hypoxic respiratory failure secondary to COVID- 19 pneumonia with superimposed bacterial pneumonia made admitted to regular nursing floor for further management Objective Data Objective Data Vital Signs: Vital Signs Temp Pulse Resp BP Pulse Ox O2 Del Method O2 Flow Rate 97.8 F 58 L 18 145/84 H 94 Nasal Cannula 5 11/01/22 03:00 11/01/22 06:59 11/01/22 06:59 11/01/22 03:00 11/01/22 07:00 11/01/22 07:00 11/01/22 07:00 FiO2 45 10/31/22 00:00 Oxygen Flow Rate (L/min) 5 Oxygen Delivery Method Nasal Cannula Weight: 116.5 kg Body Mass Index (BMI) 34.9 Intake & Output: Intake and Output for Last 24 Hours 10/30/22 10/31/22 11/01/22 23:59 23:59 23:59 Intake Total 2405 / 2405 2170 / 2770 900 / 900 Output Total 2600 / 2600 1651 / 2501 1600 / 1600 Balance -195 / -195 519 / 269 -700 / -700 Lab / Micro Data Result Diagrams: 11/01/22 04:10 11/01/22 04:10 Labs: Laboratory Results - last 24 hr 10/31/22 08:17: POC Glucose 222 H 10/31/22 12:52: POC Glucose 272 H 10/31/22 17:07: POC Glucose 321 H 10/31/22 22:24: POC Glucose 279 H 11/01/22 04:10: WBC 16.6 H, RBC 4.98, Hgb 15.4, Hct 47.2, MCV 94.8 H, MCH 30.9, MCHC 32.6, RDW Std Deviation 45.7 H, RDW Coeff of Sakshi 13.1, Plt Count 291, MPV 9.3, Neut % (Auto) Not Reportable, Absolute Neuts (auto) 13.4 H, Absolute Lymphs (auto) 1.66, Total Counted 100, Neutrophils % (Manual) 70, Band Neutrophils % 3, Lymphocytes % (Manual) 10 L, Monocytes % (Manual) 9, Metamyelocytes % 8 H, Diff Path Review May , Platelet Estimate ADEQUATE, RBC Morphology NORM C+C 11/01/22 04:10: Sodium 135 L, Potassium 4.2, Chloride 101, Carbon Dioxide 25.0, Anion Gap 9, BUN 30 H, Creatinine 0.93, Estim Creat Clear Calc 104.30, Est GFR (MDRD) Af Amer 111, Est GFR (MDRD) Non-Af 92, BUN/Creatinine Ratio 32.4 H, Glucose 244 H, Calcium 9.2, Total Bilirubin 0.40, AST 33, ALT 55, Alkaline Phosphatase 48, Total Protein 8.1, Albumin 2.9 L, Globulin 5.2 H, Albumin/Globulin Ratio 0.6 L Micro: Microbiology 10/28/22 13:00 Blood Culture (Wb) - Left Hand Blood Culture - Preliminary No growth in 48 hours. 10/28/22 12:54 Blood Culture (Wb) - Anticubital Right Blood Culture - Preliminary No growth in 48 hours. 10/28/22 09:55 Nasal Secretion SARS-CoV-2 & FLU Antigen (Rapid) - Final SARS-CoV-2 (COVID 19) Rhythm Strip Rhythm Strip: Sinus Rhythm Rate: 56 Ectopy: None Physical Exam Narrative GENERAL: cooperative but appears ill looking HEENT: Atraumatic; normocephalic EYES; Anicteric, Normal Conjunctiva NECK; supple, normal thyroid, RESPIRATORY: Diminished to auscultation CARDIOVASCULAR: Regular S1 S2, GI: soft, normoactive bowel sounds, : No Renal angle tenderness; EXTREMITIES: No edema, no clubbing, MUSCULOSKELETAL: no muscle wasting NEURO: Awake; no lateralizing signs. SKIN: No Rash PSYCH; Flat affect Psych Psych Narrative: GENERAL: cooperative HEENT: Atraumatic; normocephalic EYES; Anicteric, Normal Conjunctiva NECK; supple, normal thyroid, RESPIRATORY: Diminished to auscultation CARDIOVASCULAR: Regular S1 S2, GI: soft, normoactive bowel sounds, : No Renal angle tenderness; EXTREMITIES: No edema, no clubbing, MUSCULOSKELETAL: no muscle wasting NEURO: Awake; no lateralizing signs. SKIN: No Rash PSYCH; Flat affect Assessment & Plan Assessment/Plan (1) Respiratory failure: (2) COVID-19: PLAN: Plan Patient is a 52-year-old gentleman admitted with progressive shortness of breath . An assessment of acute hypoxic respiratory failure secondary to COVID-19 pneumonia with superimposed bacterial pneumonia made admitted to regular nursing floor for further management 1. Acute hypoxic respiratory failure secondary to combination of COVID-19 infection with superimposed community-acquired pneumonia ? Managed on supplemental oxygen which is currently being weaned down and treatment of the underlying condition 2. COVID-19 infection ? Patient managed with remdesivir which he is due to complete on 11/01/2022 and Decadron completion date 11/07/2022 3. Suspected community-acquired pneumonia ? Cultures came back negative antibiotics subsequently discontinued 4. New onset diabetes mellitus type 2 ? Patient started on glargine 5 unit twice daily in addition to Accu-Cheks befor e meals and at bedtime with sliding scale coverage 5. Class I obesity with BMI 34.8 ? Complicating care weight loss advised 6. DVT prophylaxis ? SC enoxaparin Total time spent; 36 minutes Charges/Coding Visit Charges Inpatient E&M: 50448 Subs Hosp L2
[2022-11-01] MEDS: Enoxaparin 40 MG/0.4 ML Syringe SC (09:24)
[2022-11-01] MEDS: dexAMETHasone 4 MG Tablet 6 MG PO (09:25)
[2022-11-01] MEDS: Insulin Lispro 100 UNIT/ML INSULN.PEN SC ×4 (09:53→22:44)
[2022-11-01 10:20] LABS: Bedside Glucose 246 mg/dL (74-106)
--- NOTE | 2022-11-01 10:56 | PN.CC_ITS ---
Assessment & Plan Assessment/Plan (1) Respiratory failure: (2) COVID-19: PLAN: Plan RECOMMENDATIONS: 1. Continue to wean supplemental oxygen to maintain saturations at or above 90%. 2. Continue Remdesivir (11/01/2022) and Decadron (11/07/2022). 3. Gentle diuresis as tolerated by hemodynamics and renal function. 4. Encourage incentive spirometer use and mobilize patient as tolerated. IMPRESSIONS: 1. Acute hypoxic respiratory failure secondary to COVID-19 pneumonia The patient appears to be slowly improving from a respiratory perspective. Continue current supportive measures including supplemental oxygen to maintain saturations at or above 90%. Continue remdesivir and Decadron to complete treatment courses. Recommend further consideration for gentle diuresis, as tolerated by hemodynamics and renal function. Encourage incentive spirometer use and mobilize patient as tolerated. 2. New diagnosis diabetes mellitus Continue basal and sliding scale insulin coverage. 3. Hypertension/obesity/lack of primary care Complicates care, management, recovery and prognosis. The patient will ultimately need to establish care with a primary care provider after discharge. This note was generated with [employer] dictation software. It may contain incorrect words, spelling, and punctuation that were not noted in checking the note before signing. Subjective Subjective The patient was seen and examined at the bedside this morning. Events from the last 24 hours have been reviewed. The patient is currently afebrile, hemodynamically stable and maintaining appropriate oxygen saturations on 6 L/min via nasal cannula. The patient is currently documented to be overall net +1.7 L for the hospitalization. Labs are stable this morning. The patient remains on remdesivir and Decadron. Objective Data Objective Data The patient's most recent lab work, culture data and imaging studies have all been personally reviewed. Rapid COVID testing was positive on October 28. CTA chest completed on October 28 showed no evidence for pulmonary embolism. Surface echocardiogram demonstrated normal LV size and function with an ejection fraction of 65%. Vital Signs: Vital Signs Temp Pulse Resp BP Pulse Ox O2 Del Method O2 Flow Rate 97.5 F L 62 18 122/109 H 94 High Flow 0 11/01/22 09:13 11/01/22 09:13 11/01/22 09:13 11/01/22 09:13 11/01/22 09:38 11/01/22 09:31 11/01/22 09:38 FiO2 45 10/31/22 00:00 Oxygen Flow Rate (L/min) [ 2 AMBULATING with Oxygen #1] Oxygen Flow Rate (L/min) [ 0 AMBULATING on Room Air] Oxygen Flow Rate (L/min) [At 0 REST on Room Air] Oxygen Flow Rate (L/min) 6 Oxygen Delivery Method High Flow Weight: 256 lb 13.416 oz Body Mass Index (BMI) 34.9 Intake & Output: Intake and Output for Last 24 Hours 10/30/22 10/31/22 11/01/22 23:59 23:59 23:59 Intake Total 2405 / 2405 2170 / 2770 900 / 900 Output Total 2600 / 2600 1651 / 2501 1600 / 1600 Balance -195 / -195 519 / 269 -700 / -700 Lab / Micro Data Attestation: I reviewed the patient's lab results. Result Diagrams: 11/01/22 04:10 11/01/22 04:10 Labs: Laboratory Results - last 24 hr 10/31/22 12:52: POC Glucose 272 H 10/31/22 17:07: POC Glucose 321 H 10/31/22 22:24: POC Glucose 279 H 11/01/22 04:10: WBC 16.6 H, RBC 4.98, Hgb 15.4, Hct 47.2, MCV 94.8 H, MCH 30.9, MCHC 32.6, RDW Std Deviation 45.7 H, RDW Coeff of Sakshi 13.1, Plt Count 291, MPV 9.3, Neut % (Auto) Not Reportable, Absolute Neuts (auto) 13.4 H, Absolute Lymphs (auto) 1.66, Total Counted 100, Neutrophils % (Manual) 70, Band Neutrophils % 3, Lymphocytes % (Manual) 10 L, Monocytes % (Manual) 9, Metamyelocytes % 8 H, Diff Path Review May , Platelet Estimate ADEQUATE, RBC Morphology NORM C+C 11/01/22 04:10: Sodium 135 L, Potassium 4.2, Chloride 101, Carbon Dioxide 25.0, Anion Gap 9, BUN 30 H, Creatinine 0.93, Estim Creat Clear Calc 104.30, Est GFR (MDRD) Af Amer 111, Est GFR (MDRD) Non-Af 92, BUN/Creatinine Ratio 32.4 H, Glucose 244 H, Calcium 9.2, Total Bilirubin 0.40, AST 33, ALT 55, Alkaline Phosphatase 48, Total Protein 8.1, Albumin 2.9 L, Globulin 5.2 H, Albumin/Globulin Ratio 0.6 L 11/01/22 09:29: POC Glucose 246 H Micro: Microbiology 10/28/22 13:00 Blood Culture (Wb) - Left Hand Blood Culture - Preliminary No growth in 48 hours. 10/28/22 12:54 Blood Culture (Wb) - Anticubital Right Blood Culture - Preliminary No growth in 48 hours. 10/28/22 09:55 Nasal Secretion SARS-CoV-2 & FLU Antigen (Rapid) - Final SARS-CoV-2 (COVID 19) Rhythm Strip Rhythm Strip: Sinus Rhythm Rate: 56 Ectopy: None Physical Exam Const alert and no apparent distress General Appearance: cooperative Nutritional Appearance: obese HEENT normocephalic, head/scalp atraumatic and moist oral mucous membranes Eyes PERRL and EOMs intact bilaterally Neck supple General: trachea midline Chest inspection of chest normal Resp Auscultation: diminished lung sounds; Negative for rales, rhonchi or wheezes Cardio regular rate, regular rhythm, S1 normal heart sound and S2 normal heart sound GI normal to inspection, nondistended, normoactive bowel sounds Extremity no clubbing, cyanosis or edema Skin no rashes or lesions noted Neuro oriented x3, CN's II-XII intact bilaterally and no focal motor deficits Psych cooperative and affect normal Charges/Coding Visit Charges Inpatient E&M: 10771 Subs Hosp L2
[2022-11-01] MEDS: Insulin Glargine-YFGN 100 UNIT/ML Pen SC ×2 (11:43→22:44)
[2022-11-01 12:10] LABS: Bedside Glucose 269 mg/dL (74-106)
[2022-11-01 16:55] LABS: Bedside Glucose 312 mg/dL (74-106)
[2022-11-01 23:21] LABS: Bedside Glucose 258 mg/dL (74-106)
[2022-11-02 05:45] VITALS: BP 156/84; PULSE 58; RESP 16; TEMP 37; O2SAT 95
[2022-11-02 08:06] VITALS: O2SAT 92
--- NOTE | 2022-11-02 08:19 | PCM.PN.INT ---
Assessment & Plan Assessment/Plan (1) Respiratory failure: (2) COVID-19: PLAN: Plan RECOMMENDATIONS: 1. Continue to wean supplemental oxygen to maintain saturations at or above 90%. 2. Continue Decadron (11/07/2022). Remdesivir has been completed. 3. Gentle diuresis as tolerated by hemodynamics and renal function. 4. Encourage incentive spirometer use and mobilize patient as tolerated. 5. Perform walking oximetry prior to consideration for discharge home. 6. Will sign off from a pulmonary/critical care perspective. Please call with any additional questions. IMPRESSIONS: 1. Acute hypoxic respiratory failure secondary to COVID-19 pneumonia The patient appears to be slowly improving from a respiratory perspective. Continue current supportive measures including supplemental oxygen to maintain saturations at or above 90%. The patient has completed his treatment course of remdesivir and will remain on Decadron. Diuretics can be utilized as needed to maintain euvolemic state. Continue to encourage incentive spirometer use and mobilize patient as tolerated. Perform walking oximetry study prior to consideration for discharge home. 2. New diagnosis diabetes mellitus Continue basal and sliding scale insulin coverage. 3. Hypertension/obesity/lack of primary care Complicates care, management, recovery and prognosis. The patient will ultimately need to establish care with a primary care provider after discharge. This note was generated with [employer] dictation software. It may contain incorrect words, spelling, and punctuation that were not noted in checking the note before signing. Subjective Subjective The patient was seen and examined at the bedside this morning. Events from the last 24 hours have been reviewed. The patient is currently afebrile, hemodynamically stable and maintaining appropriate oxygen saturations on 3 L/min via nasal cannula. The patient is currently documented to be overall net +3.1 L for the hospitalization. The patient denies any resting shortness of breath. Objective Data Objective Data The patient's most recent lab work, culture data and imaging studies have all been personally reviewed. Rapid COVID testing was positive on October 28. CTA chest completed on October 28 showed no evidence for pulmonary embolism. Surface echocardiogram demonstrated normal LV size and function with an ejection fraction of 65%. Vital Signs: Vital Signs Temp Pulse Resp BP Pulse Ox O2 Del Method O2 Flow Rate 98.6 F 58 L 16 156/84 H 92 Nasal Cannula 5 11/02/22 05:45 11/02/22 05:45 11/02/22 05:45 11/02/22 05:45 11/02/22 08:06 11/02/22 08:06 11/02/22 08:06 FiO2 45 10/31/22 00:00 Oxygen Flow Rate (L/min) [ 2 AMBULATING with Oxygen #1] Oxygen Flow Rate (L/min) [ 0 AMBULATING on Room Air] Oxygen Flow Rate (L/min) [At 0 REST on Room Air] Oxygen Flow Rate (L/min) 5 Oxygen Delivery Method Nasal Cannula Weight: 256 lb 13.416 oz Body Mass Index (BMI) 34.9 Intake & Output: Intake and Output for Last 24 Hours 10/31/22 11/01/22 11/02/22 23:59 23:59 23:59 Intake Total 2170 / 2770 2050 / 2050 250 / 250 Output Total 1651 / 2501 1600 / 1600 Balance 519 / 269 450 / 450 250 / 250 Lab / Micro Data Attestation: I reviewed the patient's lab results. Result Diagrams: 11/01/22 04:10 11/01/22 04:10 Labs: Laboratory Results - last 24 hr 11/01/22 09:29: POC Glucose 246 H 11/01/22 11:41: POC Glucose 269 H 11/01/22 16:21: POC Glucose 312 H 11/01/22 22:37: POC Glucose 258 H Micro: Microbiology 10/28/22 13:00 Blood Culture (Wb) - Left Hand Blood Culture - Preliminary No growth in 48 hours. 10/28/22 12:54 Blood Culture (Wb) - Anticubital Right Blood Culture - Preliminary No growth in 48 hours. 10/28/22 09:55 Nasal Secretion SARS-CoV-2 & FLU Antigen (Rapid) - Final SARS-CoV-2 (COVID 19) Rhythm Strip Rhythm Strip: Sinus Rhythm Rate: 56 Ectopy: None Physical Exam Const alert and no apparent distress Constitutional Narrative: Sitting in bedside recliner. General Appearance: cooperative Nutritional Appearance: obese HEENT normocephalic, head/scalp atraumatic and moist oral mucous membranes Eyes PERRL and EOMs intact bilaterally Neck supple General: trachea midline Chest inspection of chest normal Resp Auscultation: diminished lung sounds; Negative for rales, rhonchi or wheezes Cardio regular rate, regular rhythm, S1 normal heart sound and S2 normal heart sound GI normal to inspection, nondistended, normoactive bowel sounds Extremity no clubbing, cyanosis or edema Skin no rashes or lesions noted Neuro oriented x3, CN's II-XII intact bilaterally and no focal motor deficits Psych Mood & Affect: flat affect Charges/Coding Visit Charges Inpatient E&M: 02343 Subs Hosp L2
--- NOTE | 2022-11-02 08:21 | PCM.DC.SUM ---
Providers Date of Admission: 10/28/22 Date of Discharge: 11/02/22 Primary Care Physician: Loree Primary Care Phys Consultations 10/28/22 16:49 Consult: Lead Data Architect / Pulmonary Medicine Routine Consulting Provider: Pulmonary Medicine grady Hyatt Reason for Consult: Respiratory failure EMERGENT Consult: No MD Notified: Yes Date Notified: 10/28/22 Time Notified: 17:00 Method of Notification: Verbal Reason For Visit: RESP FAILURE Diagnosis Discharge Diagnosis (1) Respiratory failure: Status: Acute Code(s): J96.90 - Respiratory failure, unspecified, unspecified whether with hypoxia or hypercapnia (2) COVID-19: Status: Acute Code(s): U07.1 - COVID-19 Plan Patient is a 52-year-old gentleman admitted with progressive shortness of breath. An assessment of acute hypoxic respiratory failure secondary to COVID-19 pneumonia with superimposed bacterial pneumonia made admitted to regular nursing floor for further management 1. Acute hypoxic respiratory failure secondary to combination of COVID-19 infection with superimposed community-acquired pneumonia ? Managed on supplemental oxygen which is currently being weaned down and treatment of the underlying condition ? 11/02/2021 patient was assessed for home oxygen he did qualify he would need portability since he is active both at home as well as in the community. 2. COVID-19 infection ? Patient managed with remdesivir which he is due to complete on 11/01/2022 and Decadron completion date 11/07/2022 3. Suspected community-acquired pneumonia ? Cultures came back negative antibiotics subsequently discontinued 4. New onset diabetes mellitus type 2 ? Patient started on glargine 5 unit twice daily in addition to Accu-Cheks before meals and at bedtime with sliding scale coverage 5. Class I obesity with BMI 34.8 ? Complicating care weight loss advised 6. DVT prophylaxis ? SC enoxaparin Total time spent; 36 minutes Medications at Discharge Home Medications dexamethasone 6 mg tablet 6 mg PO BREAKFAST 5 days #5 tabs 11/02/22 metformin 1,000 mg tablet 1,000 mg PO BID #120 tabs 11/02/22 Hospital Course Summary of Care Provided Minutes Spent on Discharge: 36 Physical Exam Narrative GENERAL: cooperative but appears ill looking HEENT: Atraumatic; normocephalic EYES; Anicteric, Normal Conjunctiva NECK; supple, normal thyroid, RESPIRATORY: Diminished to auscultation CARDIOVASCULAR: Regular S1 S2, GI: soft, normoactive bowel sounds, : No Renal angle tenderness; EXTREMITIES: No edema, no clubbing, MUSCULOSKELETAL: no muscle wasting NEURO: Awake; no lateralizing signs. SKIN: No Rash PSYCH; Flat affect Weight / BMI Weight Weight: 116.5 kg Body Mass Index (BMI) 34.9 ABG / Lab / Microbiology Data Result Diagrams: 11/01/22 04:10 11/01/22 04:10 Laboratory: Laboratory Results - last 24 hr 11/01/22 09:29: POC Glucose 246 H 11/01/22 11:41: POC Glucose 269 H 11/01/22 16:21: POC Glucose 312 H 11/01/22 22:37: POC Glucose 258 H Microbiology: Microbiology 10/28/22 13:00 Blood Culture (Wb) - Left Hand Blood Culture - Preliminary No growth in 48 hours. 10/28/22 12:54 Blood Culture (Wb) - Anticubital Right Blood Culture - Preliminary No growth in 48 hours. 10/28/22 09:55 Nasal Secretion SARS-CoV-2 & FLU Antigen (Rapid) - Final SARS-CoV-2 (COVID 19) D/C Instructions Discharge Diet: 1800 Calorie Control Diet Discharge Activity: Return to Normal Activity Call your doctor if you observe: Fever of 101 or Higher, Shortness of breath, Fainting spells and Chest pain Meaningful Use Info Meaningful Use Diagnoses (Choose all that apply): None applicable Discharge Plan Admission Admit Date/Time: 10/28/22 11:47 Attending Provider: Stephen Judd Primary Care Provider: Care Physician,No Primary Consulting Providers: Remigio Rios ; Christopher Amaya ; Dylan Diaz ; Bro Marshall ; Nicolle Palacio [employer] ; Jenny Johnston Discharge Orders/Prescriptions Prescriptions: New dexamethasone 6 mg tablet 6 mg PO BREAKFAST 5 Days Qty: 5 0RF metformin 1,000 mg tablet 1,000 mg PO BID Qty: 120 0RF Referrals / Follow Up: Remigio Rios MD [Med Staff - Active Staff] - Within 2 Weeks Care Physician,No Primary [Primary Care Provider] - In 1 Week Disposition Disposition (needs filled in before D/C Order can be placed): Home, Self Care Charges/Coding Visit Charges Inpatient E&M: 62114 Disch Hosp >30min
[2022-11-02 09:40] VITALS: BP 136/89; PULSE 83; RESP 18; TEMP 36.5; O2SAT 94
[2022-11-02] MEDS: Enoxaparin 40 MG/0.4 ML Syringe SC (09:42)
[2022-11-02] MEDS: dexAMETHasone 4 MG Tablet 6 MG PO (09:42)
[2022-11-02] MEDS: Insulin Lispro 100 UNIT/ML INSULN.PEN SC ×2 (09:43→12:28)
[2022-11-02 10:10] LABS: Bedside Glucose 185 mg/dL (74-106)
[2022-11-02 10:49] VITALS: O2SAT 92; O2SAT 96
--- NOTE | 2022-11-02 11:06 | CASEMGMT ---
Pt does not qualify for home oxygen. Rx on pt chart for dc for a BGM. Spoke with patient and he is aware of this. He denies further homegoing needs at this time.
[2022-11-02] MEDS: Insulin Glargine-YFGN 100 UNIT/ML Pen SC (11:09)
[2022-11-02 11:31] LABS: Bedside Glucose 257 mg/dL (74-106)
[2022-11-02] MEDS: Ipratropium/Albuterol Sulfate 3 ML AMPUL.NEB INHALATION (11:32)
[2022-11-02 11:35] VITALS: PULSE 64; RESP 20
[2022-11-02 11:45] LABS: Anion Gap 11 (5-15); BUN 28 mg/dL (7-18); BUN/Creat Ratio 32.1 RATIO (10-20); Calcium,Total 8.6 mg/dL (8.5-10.1); Chloride 103 mmol/L (98-107); Creatinine, Serum 0.87 mg/dL (0.70-1.30); EST Glomerular Filtration Rate 98 mL/min (>60); Est Glom Filt Rate - Afr Amer 119 mL/min (>60); Estimated Creatinine Clearance 111.49 ml/min; Glucose 262 mg/dL (74-106); Potassium 4.3 mmol/L (3.5-5.1); Sodium Level 135 mmol/L (136-145)
[2022-11-02 12:02] LABS: Pathologist Review Reviewed
[2022-11-02 12:22] VITALS: BP 124/75; PULSE 66; RESP 18; TEMP 36.4; O2SAT 92
[2022-11-02 12:38] LABS: Pathologist Review Reviewed
== END 2022-11-02 13:05 | disposition home or self-care (01) | DRG 177 ==
LOC: ED 11:42 → ICU 10-29 09:48 → MS2 11-01 07:36 → ICU 11-01 11:00
PROVIDERS: Internal Medicine Critical Care Medicine; Admitting Provider Internal Medicine; Emergency Provider Emergency Medicine; Visit Provider Internal Medicine
DX: U07.1 COVID-19 (principal); J96.01 Acute respiratory failure with hypoxia; J12.82 Pneumonia due to coronavirus disease 2019; E11.65 Type 2 diabetes mellitus with hyperglycemia; Z79.4 Long term (current) use of insulin; I10 Essential (primary) hypertension; E87.6 Hypokalemia; G47.30 Sleep apnea, unspecified; E66.9 Obesity, unspecified; Z68.34 Body mass index [BMI] 34.0-34.9, adult
CPT/HCPCS: 36415; 71045; 71275; 80048; 80053; 80076; 82962; 83036; 83605; 85025; 87040; 87428; 93005; 93306; 94002; 94003; 94640; 94668; 94762; 99285; J7030; J7050; Q9967; 90686; A4216; J0248; J0696